=== PATIENT | male | born 1925 | race Caucasian/White ===

== ENCOUNTER 2016-07-02 13:20 | Inpatient (IN) | payer OTHER ==
[~2016-07-02] VITALS: Ht 172.7 cm; Wt 109.3 kg
[~2016-07-02 13:20] MED LIST: ACET325T9 PO; ATOR20TA58 PO; BISA-42 RC; CLON0.5T3 PO; CRESTOR10 MG PO; DEXT237L PO; DILT240C32 PO; DILT240C66 PO; DOXY100C2 PO; FAMO20TA5 PO; FLEC50TA PO; FURO40TA4 PO; FURO80TA3 PO; GLYB3TAB3 PO; HYDR-971 PO; INSU100C4 SQ; INSU100I13 SQ; INSU100I27 SQ; INSU100V8 SQ; MAG355OR30 PO; MAGN400O4 PO; METF-620 PO; MULT-245 PO; OXYC-323 PO; POT25TAB PO; PROM12.56 PO; RANI150T2 PO; SITA100T PO; UBID1CAP23 PO; VENTOLIN HFA18 GM INH; WARF2TAB7 PO; WARF5TAB7 PO
[2016-07-02] MEDS ORDERED: IV NORMAL SALINE 250ML 250 ML IV ONE (14:00)
[2016-07-02 14:23] LABS: BASO # 0.1 x10^3/uL (0.0-0.2); BASO % 1 % (0-3); EOS % 3 % (0-3); HEMATOCRIT 35.2 % (39.0-53.0); HEMOGLOBIN 11.7 g/dL (13.0-17.5); LYMPH # 1.1 x10^3/uL (1.0-4.8); LYMPH % 15 % (24-48); MEAN CORPUSCULAR HEMOGLOBIN 28 pg (25-35); MEAN CORPUSCULAR HGB CONC 33 g/dL (31-37); MEAN CORPUSCULAR VOLUME 85 fL (79-100); MONO % 13 % (0-9); NEUT % 69 % (31-73); PLATELET COUNT 186 x10^3/uL (140-400); RED BLOOD COUNT 4.16 x10^6/uL (4.30-5.70); WHITE BLOOD COUNT 7.1 x10^3/uL (4.0-11.0)
[2016-07-02 14:28] LABS: CALCIUM 8.8 mg/dL (8.5-10.1); CREATININE 1.8 mg/dL (0.7-1.3); GFR 35.7; POTASSIUM 3.3 mmol/L (3.5-5.1)
--- NOTE | 2016-07-02 14:47 | RAD ---
Portable chest, 07/02/2016: History: Shortness of breath, cough Comparison is made to a study from 12/15/2015. There is a moderate size retrocardiac mass due to the patient's known hiatal hernia. The heart is at the upper limits of normal in size. There is calcific plaquing and tortuosity of the thoracic aorta. The pulmonary vascularity is normal. A density projected over the cardiac apex is probably due to a prominent epicardial fat pad. No pulmonary infiltrate is seen. There is no evidence of pleural fluid. IMPRESSION: 1. Chronic findings as described above. 2. No acute cardiopulmonary abnormality is detected.
--- NOTE | 2016-07-02 14:59 | EKG ---
[facility] [address] [place] [address] Test Date: 2016-07-02 Test Time: 13:59:39 Pat Name: LAVONNE RODRIGUEZ Department: Room: Gender: M Attendance Secretary: : [id number] Requested By: ULISES HARPER Order Number: [id number] Reading MD: Drake Bonilla Measurements Intervals [place] Rate: 66 P: 54 OK: 176 QRS: -24 QRSD: 92 T: 7 QT: 416 QTc: 438 Interpretive Statements SINUS RHYTHM RBBB NON-SPECIFIC ST/T CHANGES Electronically Signed On 07-08-2016 13:31:12 CDT by Drake Bonilla
[2016-07-02] MEDS ORDERED: FUROSEMIDE 40 MG/4 ML VIAL. IVP ONE (15:00)
[2016-07-02] MEDS ORDERED: ONDANSETRON PF 4 MG/2 ML VIAL. IV PRN ×2 (15:15→16:26)
[2016-07-02] MEDS: IV NORMAL SALINE 1000ML BAG 1,000 ML IV SCH (15:22)
--- NOTE | 2016-07-02 16:26 | PDOC1 ---
History and Physical Date of Admission Date of Admission DATE: 07/02/16 TIME: 16:12 Identification/Chief Complaint Chief Complaint diarrhea x 4 days Problems: Source Source: Caregiver, Chart review, Patient History of Present Illness History of Present Illness 89 y.o male, resident of [facility] for some 4 yrs now, 4 day hx loose stools, non bloody, no fevers, about 3-4 times a day, Siome abd cramps. K 3.3 at ER, hx of CHF, afib on AC, sees outside cards. Chronic lymphedema, used to go to wound care, known to our wound care and GS for some debridement before? In any case admitted for diarrhea in an elderly with extensive past medcial hx, WBC normal, no stools yet, VS ok, K 3,.3 - will get replacement At ER NO recent travel, no sick contacts - or at least, none he is aware of at [facility] Past Medical History Cardiovascular: AFIB, CHF, Hyperlipidemia Pulmonary: COPD GI: GERD Heme/Onc: Other Hepatobiliary: No pertinent hx Psych: No pertinent hx Musculoskeletal: Swelling Rheumatologic: No pertinent hx Infectious disease: No pertinent hx Renal/: Chronic renal insuff Endocrine: Diabetes Past Surgical History Past Surgical History: No pertinent history Family History Family History: Family History Unknown Social History Smoke: No ALCOHOL: none Drugs: None Current Medications Current Medications Current Medications Sodium Chloride 250 ml @ 250 mls/hr 1X ONCE IV Last administered on 14:25; Start 07/02/16 at 14:00; Stop 07/02/16 at 14:59; Status DC Furosemide (Lasix) 40 mg 1X ONCE IVP Last administered on 07/02/16 15:23; Start 07/02/16 at 15:00; Stop 07/02/16 at 15:01; Status DC Ondansetron HCl (Zofran) 4 mg PRN Q8HRS PRN IV NAUSEA/VOMITING; Start 07/02/16 at 15:15; Stop 07/03/16 at 15:14 Sodium Chloride 1,000 ml @ 100 mls/hr Q10H IV Last administered on 07/02/16 15:22; Start 07/02/16 at 15:03; Stop 07/03/16 at 15:02 Active Scripts Active Doxycycline Hyclate 100 Mg Capsule 1 Cap PO BID Ventolin Hfa Inhaler (Albuterol Sulfate) 18 Gm Hfa.aer.ad 2 Puff INH Q4HRS PRN Levemir Flextouch (Insulin Detemir) 300 Units/3 Ml Insuln.pen 20 Units SQ QHS Reported Crestor (Rosuvastatin Calcium) 10 Mg Tablet 10 Mg PO HS Januvia (Sitagliptin Phosphate) 100 Mg Tablet 100 Mg PO DAILY Cartia Xt (Diltiazem Hcl) 240 Mg Cap.er.24h 240 Mg PO Furosemide 40 Mg Tablet 1 Tab PO DAILY Gave this am Take again tomorrow morning Rulox Suspension (Mag Hydrox/Al Hydrox/Simeth) 355 Ml Oral.susp 355 Ml PO DAILY PRN Not given on this admission take as needed for heartburn Milk Of Magnesia (Magnesium Hydroxide) 400 Mg/5 Ml Oral.susp 400 Mg PO DAILY PRN Not given on this admission take as needed for constipation Dulcolax (Bisacodyl) 5 Mg Tablet.dr 10 Mg RC PRN DAILY PRN Not given on this admission Take as needed for constipation Clonazepam 0.5 Mg Tablet 0.5 Mg PO HS PRN Not given on this admission Take as needed for anxiety Warfarin Sodium 2 Mg Tablet 6 Mg PO DAILY Gave yesterday at 5pm Take again this evening Potassium Cl 25 Meq Tab Eff (Pot Chloride/Pot Bicarb/Cit Ac) 25 Meq Tablet.eff 20 Meq PO DAILY Gave this am Take again tomorrow morning Multi Vitamin Daily (Multivitamin) 1 Each Tablet 1 Each PO DAILY Gave this am Take again tomorrow morning Allergies Allergies: Coded Allergies: No Known Drug Allergies (Unverified , 12/05/14) ROS General: No: Chills, Night Sweats, Fatigue, Malaise, Appetite, Other PSYCHOLOGICAL ROS: No: Anxiety, Behavioral Disorder, Concentration difficultie , Decreased libido, Depression, Disorientation, Hallucinations, Hostility, Irritablity, Memory difficulties, Mood Swings, Obsessive thoughts, Physical abuse, Sexual abuse, Sleep disturbances, Suicidal ideation, Other Eyes: No Blurry vision, No Decreased vision, No Double vision, No Dry eyes, No Excessive tearing, No Eye Pain, No Itchy Eyes, No Loss of vision, No Photophobia , No Scotomata, No Uses contacts, No Uses glasses, No Other HEENT: No: Heacaches, Visual Changes, Hearing change, Nasal congestion, Nasal discharge, Oral lesions, Sinus pain, Sore Throat, Epistaxis, Sneezing, Snoring, Tinnitus, Vertigo, Vocal changes, Other ALLERGY AND IMMUNOLOGY: No: Hives, Insect Bite Sensitivity, Itchy/Watery Eyes, Nasal Congestion, Post Nasal Drip, Seasonal Allergies, Other Hematological and Lymphatic: No: Bleeding Problems, Blood Clots, Blood Transfusions, Brusing, Night Sweats, Pallor, Swollen Lymph Nodes, Other ENDOCRINE: No: Breast Changes, Galactorrhea, Hair Pattern Changes, Hot Flashes , Malaise/lethargy, Mood Swings, Palpitations, Polydipsia/polyuria, Skin Changes , Temperature Intolerance, Unexpected Weight Changes, Other Breast: No New/Changing Breast Lumps, No Nipple changes, No Nipple discharge, No Other Respiratory: No: Cough, Hemoptysis, Orthopnea, Pleuritic Pain, Shortness of breath, SOB with excertion, Sputum Changes, Stridor, Tachypnea, Wheezing, Other Cardiovascular: No Chest Pain, No Palpitations, No Orthopnea, No Paroxysmal Noc. Dyspnea, No Edema, No Lt Headedness, No Other Gastrointestinal: Yes Nausea, Yes Abdominal Pain, Yes Diarrhea Genitourinary: No Dysuria, No Frequency, No Incontinence, No Hematuria, No Retention, No Discharge, No Urgency, No Pain, No Flank Pain, No Other, No , No , No , No , No , No , No Musculoskeletal: No Gait Disturbance, No Joint Pain, No Joint Stiffness, No Joint Swelling, No Muscle Pain, No Muscular Weakness, No Pain In:, No Swelling In:, No Other Neurological: No Behavorial Changes, No Bowel/Bladder ControlChng, No Confusion , No Dizziness, No Gait Disturbance, No Headaches, No Impaired Coord/balance, No Memory Loss, No Numbness/Tingling, No Seizures, No Speech Problems, No Tremors, No Visual Changes, No Weakness, No Other Skin: No Dry Skin, No Eczema, No Hair Changes, No Lumps, No Mole Changes, No Mottling, No Nail Changes, No Pruritus, No Rash, No Skin Lesion Changes, No Other, No Acne Physical Exam General: Alert, Oriented X3, Cooperative, No acute distress HEENT: Atraumatic, PERRLA, EOMI Lungs: Clear to auscultation, Normal air movement Heart: S1S2, RRR, no thrills, no rubs, no gallops Cardiovascular: S1, S2 Breasts: Normal, Abnormal mass palpable Abdomen: Normal bowel sounds, Soft, No tenderness, No hepatosplenomegaly, No masses Male Genitals Exam: normal genitalia, normal prostate Rectal Exam: not examined PELVIC: Nml ext genitalia Extremities: Other (chroncimlynmphedema, old hyperpigmenattion, some weeping lesions, none erythematous) Skin: Other (as above) Neuro: Normal gait, Normal speech, Strength at 5/5 X4 ext, Normal tone, Sensation intact, Cranial nerves 3-12 NL, Reflexes 2+ Psych/Mental Status: Mental status NL, Mood NL Vitals Vitals Vital Signs Date Time Temp Pulse Resp B/P (MAP) Pulse Ox O2 Delivery O2 Flow Rate FiO2 07/02/16 13:25 98.7 71 17 122/60 (80) 90 Room Air 98.7 Labs Labs Laboratory Tests Test 07/02/16 14:05 White Blood Count 7.1 x10^3/uL (4.0-11.0) Red Blood Count 4.16 x10^6/uL (4.30-5.70) Hemoglobin 11.7 g/dL (13.0-17.5) Hematocrit 35.2 % (39.0-53.0) Mean Corpuscular Volume 85 fL (79-100) Mean Corpuscular Hemoglobin 28 pg (25-35) Mean Corpuscular Hemoglobin Concent 33 g/dL (31-37) Red Cell Distribution Width 16.0 % (11.5-14.5) Platelet Count 186 x10^3/uL (140-400) Neutrophils (%) (Auto) 69 % (31-73) Lymphocytes (%) (Auto) 15 % (24-48) Monocytes (%) (Auto) 13 % (0-9) Eosinophils (%) (Auto) 3 % (0-3) Basophils (%) (Auto) 1 % (0-3) Neutrophils # (Auto) 4.8 x10^3uL (1.8-7.7) Lymphocytes # (Auto) 1.1 x10^3/uL (1.0-4.8) Monocytes # (Auto) 0.9 x10^3/uL (0.0-1.1) Eosinophils # (Auto) 0.2 x10^3/uL (0.0-0.7) Basophils # (Auto) 0.1 x10^3/uL (0.0-0.2) Sodium Level 143 mmol/L (136-145) Potassium Level 3.3 mmol/L (3.5-5.1) Chloride Level 103 mmol/L (98-107) Carbon Dioxide Level 34 mmol/L (21-32) Anion Gap 6 (6-14) Blood Urea Nitrogen 28 mg/dL (8-26) Creatinine 1.8 mg/dL (0.7-1.3) Estimated GFR (Cockcroft-Gault) 35.7 Glucose Level 165 mg/dL (70-99) Calcium Level 8.8 mg/dL (8.5-10.1) Troponin I Quantitative < 0.017 ng/mL (0.000-0.055) UU-Fpv-Y-Type Natriuretic Peptide 109 pg/mL (0-449) Laboratory Tests Test 07/02/16 14:05 White Blood Count 7.1 x10^3/uL (4.0-11.0) Red Blood Count 4.16 x10^6/uL (4.30-5.70) Hemoglobin 11.7 g/dL (13.0-17.5) Hematocrit 35.2 % (39.0-53.0) Mean Corpuscular Volume 85 fL (79-100) Mean Corpuscular Hemoglobin 28 pg (25-35) Mean Corpuscular Hemoglobin Concent 33 g/dL (31-37) Red Cell Distribution Width 16.0 % (11.5-14.5) Platelet Count 186 x10^3/uL (140-400) Neutrophils (%) (Auto) 69 % (31-73) Lymphocytes (%) (Auto) 15 % (24-48) Monocytes (%) (Auto) 13 % (0-9) Eosinophils (%) (Auto) 3 % (0-3) Basophils (%) (Auto) 1 % (0-3) Neutrophils # (Auto) 4.8 x10^3uL (1.8-7.7) Lymphocytes # (Auto) 1.1 x10^3/uL (1.0-4.8) Monocytes # (Auto) 0.9 x10^3/uL (0.0-1.1) Eosinophils # (Auto) 0.2 x10^3/uL (0.0-0.7) Basophils # (Auto) 0.1 x10^3/uL (0.0-0.2) Sodium Level 143 mmol/L (136-145) Potassium Level 3.3 mmol/L (3.5-5.1) Chloride Level 103 mmol/L (98-107) Carbon Dioxide Level 34 mmol/L (21-32) Anion Gap 6 (6-14) Blood Urea Nitrogen 28 mg/dL (8-26) Creatinine 1.8 mg/dL (0.7-1.3) Estimated GFR (Cockcroft-Gault) 35.7 Glucose Level 165 mg/dL (70-99) Calcium Level 8.8 mg/dL (8.5-10.1) Troponin I Quantitative < 0.017 ng/mL (0.000-0.055) JB-Pnb-K-Type Natriuretic Peptide 109 pg/mL (0-449) VTE Prophylaxis Ordered VTE Prophylaxis Devices: Yes VTE Pharmacological Prophylaxi: Yes Assessment/Plan Assessment/Plan 1. AGE 2. Chronic lymphedema, 3. Acute bilateral leg pain 4. Chronic wounds legs 5. Long toe nails 6, Hypokalemia from GI loss 7. CHF, atrial fib on AC - all chronic stable PLAn: Admit Send for stool studies Replace K Wound care Podiatry consult OT for lymphedema PT/OT Resume home meds COnt hung BELTRAN MD and family LAUREN LLANES MD July 02, 2016 16:26
[2016-07-02] MEDS ORDERED: BISACODYL 5 MG TABLET.DR. PO PRN (16:30)
[2016-07-02] MEDS ORDERED: DEXTROSE 50% 25 GM / 50ML DISP.SYRIN. IV PRN (16:30)
[2016-07-02] MEDS ORDERED: MAGNESIUM HYDROXIDE 2,400 MG/30 ML ORAL.SUSP. PO PRN (16:30)
[2016-07-02 16:59] LABS: INR 2.8 (0.8-1.1)
--- NOTE | 2016-07-02 17:06 | PHYS DOC ---
Past Medical History Past Medical History: A-Fib, Anxiety, Arthritis, Constipation, COPD, Coagulopathy, Diabetes-Type II, GERD, High Cholesterol, Hypertension, Other Additional Past Medical Histor: Obstructive Sleep Apnea Past Surgical History: Appendectomy, Tonsillectomy Additional Past Surgical Histo: Hernia Alcohol Use: None Drug Use: None Adult General Chief Complaint Chief Complaint: MULTIPLE COMPLAINTS HPI HPI 89-year-old male who's had significant diarrhea for the last 2 days and increasing weakness as well as noted bilateral lower extremity edema with some noted venous stasis. Patient states he has had multiple loose stools today denies any blood. He denies taking any antibiotic currently. Patient is on Coumadin therapy. States he has history of CHF, CKD, and lympadenopathy. He reports he has significant pain to his lower extremities. Patient does take diuretic therapy but states it is not helped with his leg swelling. He denies any significant shortness of breath today. Upon arrival, the patient was saturating in the 90-91% range on room air and was placed on supplemental oxygen. He does not appear to be in any acute distress. He is afebrile and nontoxic in appearance Review of Systems Review of Systems Constitutional: Denies fever or chills [] Eyes: Denies change in visual acuity, redness, or eye pain [] HENT: Denies nasal congestion or sore throat [] Respiratory: Denies cough or shortness of breath [] Cardiovascular: No additional information not addressed in HPI [] GI: Denies abdominal pain, nausea, vomiting, bloody stools or diarrhea [] : Denies dysuria or hematuria [] Musculoskeletal: Denies back pain or joint pain [] Integument: Denies rash or skin lesions [] Neurologic: Denies headache, focal weakness or sensory changes [] Endocrine: Denies polyuria or polydipsia [] Current Medications Current Medications Current Medications Medications (Trade) Dose Ordered Sig/Kevyn Start Time Stop Time Status Last Admin Dose Admin Bisacodyl (Dulcolax Tab) 10 mg PRN DAILY PRN 07/02/16 16:30 UNV Clonazepam (KlonoPIN) 0.5 mg PRN QHS PRN 07/02/16 16:30 Dextrose (Dextrose 50%-Water Syringe) 12.5 gm PRN Q15MIN PRN 07/02/16 16:30 Diltiazem HCl (Cardizem 24hr Cd) 240 mg DAILY 07/03/16 09:00 UNV Furosemide (Lasix) 40 mg DAILY 07/03/16 09:00 UNV Insulin Aspart (NovoLOG) 0-9 UNITS TIDWMEALS 07/02/16 17:00 UNV Insulin Detemir (Levemir) 20 units QHS 07/02/16 21:00 UNV Magnesium Hydroxide (Milk Of Magnesia) 400 mg PRN DAILY PRN 07/02/16 16:30 Non-Formulary Medication 100 mg DAILY 07/03/16 09:00 UNV Ondansetron HCl (Zofran) 4 mg PRN Q6HRS PRN 07/02/16 16:26 07/03/16 16:25 Sodium Chloride 1,000 ml @ 100 mls/hr Q10H 07/02/16 15:03 07/03/16 15:02 07/02/16 15:22 100 MLS/HR Warfarin Sodium (Coumadin) 6 mg DAILY 07/03/16 09:00 UNV Allergies Allergies Allergies Coded Allergies Type Severity Reaction Last Updated Verified No Known Drug Allergies 12/05/14 No Physical Exam Physical Exam Constitutional: Well developed, well nourished, no acute distress, non-toxic appearance. [] HENT: Normocephalic, atraumatic, bilateral external ears normal, oropharynx moist, no oral exudates, nose normal. [] Eyes: PERRLA, EOMI, conjunctiva normal, no discharge. [] Neck: Normal range of motion, no tenderness, supple, no stridor. [] Cardiovascular:Heart rate regular rhythm, no murmur [] Lungs & Thorax: Bilateral breath sounds clear to auscultation [] Abdomen: Bowel sounds normal, soft, no tenderness, no masses, no pulsatile masses. [] Skin: Warm, dry, no erythema, no rash. [] Back: No tenderness, no CVA tenderness. [] Extremities: No tenderness, no cyanosis, no clubbing, ROM intact, significant edema bilaterally with some noted erythema from venous statis and several areas of mild clear drainage noted. [] Neurologic: Alert and oriented X 3, normal motor function, normal sensory function, no focal deficits noted. [] Psychologic: Affect normal, judgement normal, mood normal. [] Current Patient Data Vital Signs Vital Signs Date Time Temp Pulse Resp B/P (MAP) Pulse Ox O2 Delivery O2 Flow Rate FiO2 07/02/16 13:25 98.7 71 17 122/60 (80) 90 Room Air 98.7 Lab Values Laboratory Tests Test 07/02/16 14:05 White Blood Count 7.1 x10^3/uL (4.0-11.0) Red Blood Count 4.16 x10^6/uL (4.30-5.70) L Hemoglobin 11.7 g/dL (13.0-17.5) L Hematocrit 35.2 % (39.0-53.0) L Mean Corpuscular Volume 85 fL (79-100) Mean Corpuscular Hemoglobin 28 pg (25-35) Mean Corpuscular Hemoglobin Concent 33 g/dL (31-37) Red Cell Distribution Width 16.0 % (11.5-14.5) H Platelet Count 186 x10^3/uL (140-400) Neutrophils (%) (Auto) 69 % (31-73) Lymphocytes (%) (Auto) 15 % (24-48) L Monocytes (%) (Auto) 13 % (0-9) H Eosinophils (%) (Auto) 3 % (0-3) Basophils (%) (Auto) 1 % (0-3) Neutrophils # (Auto) 4.8 x10^3uL (1.8-7.7) Lymphocytes # (Auto) 1.1 x10^3/uL (1.0-4.8) Monocytes # (Auto) 0.9 x10^3/uL (0.0-1.1) Eosinophils # (Auto) 0.2 x10^3/uL (0.0-0.7) Basophils # (Auto) 0.1 x10^3/uL (0.0-0.2) Prothrombin Time 28.0 SEC (11.7-14.0) H Prothrombin Time INR 2.8 (0.8-1.1) H Sodium Level 143 mmol/L (136-145) Potassium Level 3.3 mmol/L (3.5-5.1) L Chloride Level 103 mmol/L (98-107) Carbon Dioxide Level 34 mmol/L (21-32) H Anion Gap 6 (6-14) Blood Urea Nitrogen 28 mg/dL (8-26) H Creatinine 1.8 mg/dL (0.7-1.3) H Estimated GFR (Cockcroft-Gault) 35.7 Glucose Level 165 mg/dL (70-99) H Calcium Level 8.8 mg/dL (8.5-10.1) Troponin I Quantitative < 0.017 ng/mL (0.000-0.055) AS-Faw-K-Type Natriuretic Peptide 109 pg/mL (0-449) Laboratory Tests 07/02/16 14:05 Laboratory Tests 07/02/16 14:05 EKG EKG EKG as interpreted by me shows a sinus rhythm approximately a rate of 66 bpm. There is a leftward axis. There is no acute injury pattern seen. Radiology/Procedures Radiology/Procedures Portable chest, 07/02/2016: History: Shortness of breath, cough Comparison is made to a study from 12/15/2015. There is a moderate size retrocardiac mass due to the patient's known hiatal hernia. The heart is at the upper limits of normal in size. There is calcific plaquing and tortuosity of the thoracic aorta. The pulmonary vascularity is normal. A density projected over the cardiac apex is probably due to a prominent epicardial fat pad. No pulmonary infiltrate is seen. There is no evidence of pleural fluid. IMPRESSION: 1. Chronic findings as described above. 2. No acute cardiopulmonary abnormality is detected. Course & Med Decision Making Course & Med Decision Making Pertinent Labs and Imaging studies reviewed. (See chart for details) This 89 yo male with ongoing fluid loss from diarrhea with some mild symptoms of dehydration will be admitted for fluid rehydration therapy. His laboratory workup is fairly unremarkable. His EKG and chest film were also fairly unremarkable. Patient was given a dose of IV Lasix for his bilateral lower extremity swelling. His proBNP was not significantly elevated. His symptoms are likely more related to his known lymphedema. Dragon Disclaimer Dragon Disclaimer This electronic medical record was generated, in whole or in part, using a voice recognition dictation system. Departure Departure Impression: Primary Impression: Dehydration Additional Impression: Lower extremity edema Disposition: 09 ADMITTED INPATIENT Admitting Physician: Beverly Posey Condition: STABLE Referrals: STEPHANI SENA DO (PCP) Problem Qualifiers ULISES HARPER DO July 02, 2016 17:06
[2016-07-02] MEDS: INSULIN ASPART 300 UNITS/3 ML INSULN.PEN SQ SCH (18:00)
[2016-07-02] MEDS ORDERED: ALBUTEROL SULFATE 2.5 MG/3 ML NEBU. NEB PRN (19:00)
[2016-07-02] MEDS ORDERED: MAG HYDROX/ALUMINUM HYD/SIMETH 30 ML ORAL.SUSP PO PRN (19:00)
[2016-07-02] MEDS: WARFARIN 6 MG TABLET. PO SCH (19:41)
[2016-07-02 19:59] VITALS: BP 96/54
[2016-07-02] MEDS ORDERED: NON FORMULARY ITEM (Doxycycline Hyclate 1 CAP) PO SCH (21:00)
[2016-07-02] MEDS: ATORVASTATIN CALCIUM 40 MG TABLET. PO SCH (21:16)
[2016-07-02] MEDS ORDERED: POTASSIUM CHLORIDE 20 MEQ TABLET.ER. PO ONE (21:30)
[2016-07-02] MEDS: ACETAMINOPHEN 325 MG TABLET. PO PRN (21:52)
[2016-07-02] MEDS: INSULIN DETEMIR 300 UNITS/3 ML INSULN.PEN. SQ SCH (22:37)
[2016-07-02 23:59] VITALS: BP 96/60
[2016-07-03] MEDS: IV NORMAL SALINE 1000ML BAG 1,000 ML IV SCH ×2 (01:38→11:22)
[2016-07-03 03:59] VITALS: BP 99/57
[2016-07-03 05:18] LABS: BASO % 1 % (0-3); EOS % 3 % (0-3); HEMOGLOBIN 10.3 g/dL (13.0-17.5); LYMPH # 1.1 x10^3/uL (1.0-4.8); LYMPH % 17 % (24-48); MEAN CORPUSCULAR HEMOGLOBIN 28 pg (25-35); MEAN CORPUSCULAR HGB CONC 34 g/dL (31-37); MEAN CORPUSCULAR VOLUME 83 fL (79-100); MONO % 13 % (0-9); NEUT % 67 % (31-73); PLATELET COUNT 166 x10^3/uL (140-400); RED BLOOD COUNT 3.62 x10^6/uL (4.30-5.70); RED CELL DISTRIBUTION WIDTH 16.4 % (11.5-14.5); WHITE BLOOD COUNT 6.5 x10^3/uL (4.0-11.0)
[2016-07-03 05:30] LABS: CALCIUM 8.1 mg/dL (8.5-10.1); CREATININE 1.5 mg/dL (0.7-1.3); GFR 44.1; POTASSIUM 3.2 mmol/L (3.5-5.1)
[2016-07-03 07:00] VITALS: BP 105/68
[2016-07-03] MEDS ORDERED: POTASSIUM CHLORIDE 20 MEQ TABLET.ER. PO SCH (08:00)
[2016-07-03] MEDS: INSULIN ASPART 300 UNITS/3 ML INSULN.PEN SQ SCH ×3 (08:47→17:18)
[2016-07-03] MEDS: MULTIVITAMIN with MINERAL TABLET. PO SCH (08:48)
[2016-07-03] MEDS: FUROSEMIDE 40 MG TABLET. PO SCH (08:48)
[2016-07-03] MEDS: LINAGLIPTIN 5 MG TABLET PO SCH (08:49)
[2016-07-03] MEDS ORDERED: POTASSIUM CHLORIDE 20 MEQ TABLET.ER. PO ONE (11:00)
[2016-07-03 11:07] VITALS: BP 113/71
--- NOTE | 2016-07-03 11:42 | PDOC ---
PROGRESS NOTES Chief Complaint Chief Complaint Assessment/Plan 1. AGE, seems to be resolving 2. Chronic lymphedema, 3. Acute bilateral leg pain, chronic lymhedema 4. Chronic wounds legs - none seem infected 5. Long toe nails 6, Hypokalemia from GI loss 7. CHF, atrial fib on AC - all chronic stable History of Present Illness History of Present Illness NO stool sample bec has not had diarrhea since admission NOw is about to void NO issues per pt and RN Legs edema, chronic K 3.2 Crea better 1,.5 from 1,.8 Abd distended -chronic for him per pt PLAN: Replace K orally Stop IVF\K lucia AM Podiatry consulted for toe nail clipping ordered at ER level Await stool sample If cont to do better then home lucia Trial of immoidum - doubt c diff dw pt and RN Vitals Vitals Vital Signs Date Time Temp Pulse Resp B/P (MAP) Pulse Ox O2 Delivery O2 Flow Rate FiO2 07/03/16 11:07 97.8 72 20 113/71 (85) 95 Nasal Cannula 2.0 97.8 Physical Exam General: Alert, Oriented X3, Cooperative, No acute distress Lungs: Clear Abdomen: Normal bowel sounds, Soft, No tenderness, No hepatosplenomegaly, No masses Extremities: Other (chroncimlynmphedema, old hyperpigmenattion, some weeping lesions, none erythematous) Skin: Other (as above) Labs LABS Laboratory Tests Test 07/02/16 14:05 07/02/16 17:47 07/02/16 22:28 07/03/16 03:05 White Blood Count 7.1 x10^3/uL (4.0-11.0) 6.5 x10^3/uL (4.0-11.0) Red Blood Count 4.16 x10^6/uL (4.30-5.70) 3.62 x10^6/uL (4.30-5.70) Hemoglobin 11.7 g/dL (13.0-17.5) 10.3 g/dL (13.0-17.5) Hematocrit 35.2 % (39.0-53.0) 30.0 % (39.0-53.0) Mean Corpuscular Volume 85 fL (79-100) 83 fL (79-100) Mean Corpuscular Hemoglobin 28 pg (25-35) 28 pg (25-35) Mean Corpuscular Hemoglobin Concent 33 g/dL (31-37) 34 g/dL (31-37) Red Cell Distribution Width 16.0 % (11.5-14.5) 16.4 % (11.5-14.5) Platelet Count 186 x10^3/uL (140-400) 166 x10^3/uL (140-400) Neutrophils (%) (Auto) 69 % (31-73) 67 % (31-73) Lymphocytes (%) (Auto) 15 % (24-48) 17 % (24-48) Monocytes (%) (Auto) 13 % (0-9) 13 % (0-9) Eosinophils (%) (Auto) 3 % (0-3) 3 % (0-3) Basophils (%) (Auto) 1 % (0-3) 1 % (0-3) Neutrophils # (Auto) 4.8 x10^3uL (1.8-7.7) 4.3 x10^3uL (1.8-7.7) Lymphocytes # (Auto) 1.1 x10^3/uL (1.0-4.8) 1.1 x10^3/uL (1.0-4.8) Monocytes # (Auto) 0.9 x10^3/uL (0.0-1.1) 0.9 x10^3/uL (0.0-1.1) Eosinophils # (Auto) 0.2 x10^3/uL (0.0-0.7) 0.2 x10^3/uL (0.0-0.7) Basophils # (Auto) 0.1 x10^3/uL (0.0-0.2) 0.0 x10^3/uL (0.0-0.2) Prothrombin Time 28.0 SEC (11.7-14.0) Prothromb Time International Ratio 2.8 (0.8-1.1) Sodium Level 143 mmol/L (136-145) 144 mmol/L (136-145) Potassium Level 3.3 mmol/L (3.5-5.1) 3.2 mmol/L (3.5-5.1) Chloride Level 103 mmol/L (98-107) 106 mmol/L (98-107) Carbon Dioxide Level 34 mmol/L (21-32) 31 mmol/L (21-32) Anion Gap 6 (6-14) 7 (6-14) Blood Urea Nitrogen 28 mg/dL (8-26) 24 mg/dL (8-26) Creatinine 1.8 mg/dL (0.7-1.3) 1.5 mg/dL (0.7-1.3) Estimated GFR (Cockcroft-Gault) 35.7 44.1 Glucose Level 165 mg/dL (70-99) 62 mg/dL (70-99) Calcium Level 8.8 mg/dL (8.5-10.1) 8.1 mg/dL (8.5-10.1) Troponin I Quantitative < 0.017 ng/mL (0.000-0.055) SJ-Dak-Z-Type Natriuretic Peptide 109 pg/mL (0-449) Glucose (Fingerstick) 62 mg/dL (70-99) 175 mg/dL (70-99) Test 07/03/16 07:54 Glucose (Fingerstick) 79 mg/dL (70-99) Review of Systems Review of Systems denies cp. soa, abd pain Assessment and Plan Assessmemt and Plan Problems Medical Problems: (1) Dehydration Status: Acute (2) Lower extremity edema Status: Acute Problems: Comment Review of Relevant I have reviewed the following items faby (where applicable) has been applied. Labs Laboratory Tests Test 07/02/16 14:05 07/02/16 17:47 07/02/16 22:28 07/03/16 03:05 White Blood Count 7.1 x10^3/uL (4.0-11.0) 6.5 x10^3/uL (4.0-11.0) Red Blood Count 4.16 x10^6/uL (4.30-5.70) 3.62 x10^6/uL (4.30-5.70) Hemoglobin 11.7 g/dL (13.0-17.5) 10.3 g/dL (13.0-17.5) Hematocrit 35.2 % (39.0-53.0) 30.0 % (39.0-53.0) Mean Corpuscular Volume 85 fL (79-100) 83 fL (79-100) Mean Corpuscular Hemoglobin 28 pg (25-35) 28 pg (25-35) Mean Corpuscular Hemoglobin Concent 33 g/dL (31-37) 34 g/dL (31-37) Red Cell Distribution Width 16.0 % (11.5-14.5) 16.4 % (11.5-14.5) Platelet Count 186 x10^3/uL (140-400) 166 x10^3/uL (140-400) Neutrophils (%) (Auto) 69 % (31-73) 67 % (31-73) Lymphocytes (%) (Auto) 15 % (24-48) 17 % (24-48) Monocytes (%) (Auto) 13 % (0-9) 13 % (0-9) Eosinophils (%) (Auto) 3 % (0-3) 3 % (0-3) Basophils (%) (Auto) 1 % (0-3) 1 % (0-3) Neutrophils # (Auto) 4.8 x10^3uL (1.8-7.7) 4.3 x10^3uL (1.8-7.7) Lymphocytes # (Auto) 1.1 x10^3/uL (1.0-4.8) 1.1 x10^3/uL (1.0-4.8) Monocytes # (Auto) 0.9 x10^3/uL (0.0-1.1) 0.9 x10^3/uL (0.0-1.1) Eosinophils # (Auto) 0.2 x10^3/uL (0.0-0.7) 0.2 x10^3/uL (0.0-0.7) Basophils # (Auto) 0.1 x10^3/uL (0.0-0.2) 0.0 x10^3/uL (0.0-0.2) Prothrombin Time 28.0 SEC (11.7-14.0) Prothromb Time International Ratio 2.8 (0.8-1.1) Sodium Level 143 mmol/L (136-145) 144 mmol/L (136-145) Potassium Level 3.3 mmol/L (3.5-5.1) 3.2 mmol/L (3.5-5.1) Chloride Level 103 mmol/L (98-107) 106 mmol/L (98-107) Carbon Dioxide Level 34 mmol/L (21-32) 31 mmol/L (21-32) Anion Gap 6 (6-14) 7 (6-14) Blood Urea Nitrogen 28 mg/dL (8-26) 24 mg/dL (8-26) Creatinine 1.8 mg/dL (0.7-1.3) 1.5 mg/dL (0.7-1.3) Estimated GFR (Cockcroft-Gault) 35.7 44.1 Glucose Level 165 mg/dL (70-99) 62 mg/dL (70-99) Calcium Level 8.8 mg/dL (8.5-10.1) 8.1 mg/dL (8.5-10.1) Troponin I Quantitative < 0.017 ng/mL (0.000-0.055) OT-Rcn-O-Type Natriuretic Peptide 109 pg/mL (0-449) Glucose (Fingerstick) 62 mg/dL (70-99) 175 mg/dL (70-99) Test 07/03/16 07:54 Glucose (Fingerstick) 79 mg/dL (70-99) Laboratory Tests Test 07/02/16 14:05 07/02/16 17:47 07/02/16 22:28 07/03/16 03:05 White Blood Count 7.1 x10^3/uL (4.0-11.0) 6.5 x10^3/uL (4.0-11.0) Red Blood Count 4.16 x10^6/uL (4.30-5.70) 3.62 x10^6/uL (4.30-5.70) Hemoglobin 11.7 g/dL (13.0-17.5) 10.3 g/dL (13.0-17.5) Hematocrit 35.2 % (39.0-53.0) 30.0 % (39.0-53.0) Mean Corpuscular Volume 85 fL (79-100) 83 fL (79-100) Mean Corpuscular Hemoglobin 28 pg (25-35) 28 pg (25-35) Mean Corpuscular Hemoglobin Concent 33 g/dL (31-37) 34 g/dL (31-37) Red Cell Distribution Width 16.0 % (11.5-14.5) 16.4 % (11.5-14.5) Platelet Count 186 x10^3/uL (140-400) 166 x10^3/uL (140-400) Neutrophils (%) (Auto) 69 % (31-73) 67 % (31-73) Lymphocytes (%) (Auto) 15 % (24-48) 17 % (24-48) Monocytes (%) (Auto) 13 % (0-9) 13 % (0-9) Eosinophils (%) (Auto) 3 % (0-3) 3 % (0-3) Basophils (%) (Auto) 1 % (0-3) 1 % (0-3) Neutrophils # (Auto) 4.8 x10^3uL (1.8-7.7) 4.3 x10^3uL (1.8-7.7) Lymphocytes # (Auto) 1.1 x10^3/uL (1.0-4.8) 1.1 x10^3/uL (1.0-4.8) Monocytes # (Auto) 0.9 x10^3/uL (0.0-1.1) 0.9 x10^3/uL (0.0-1.1) Eosinophils # (Auto) 0.2 x10^3/uL (0.0-0.7) 0.2 x10^3/uL (0.0-0.7) Basophils # (Auto) 0.1 x10^3/uL (0.0-0.2) 0.0 x10^3/uL (0.0-0.2) Prothrombin Time 28.0 SEC (11.7-14.0) Prothromb Time International Ratio 2.8 (0.8-1.1) Sodium Level 143 mmol/L (136-145) 144 mmol/L (136-145) Potassium Level 3.3 mmol/L (3.5-5.1) 3.2 mmol/L (3.5-5.1) Chloride Level 103 mmol/L (98-107) 106 mmol/L (98-107) Carbon Dioxide Level 34 mmol/L (21-32) 31 mmol/L (21-32) Anion Gap 6 (6-14) 7 (6-14) Blood Urea Nitrogen 28 mg/dL (8-26) 24 mg/dL (8-26) Creatinine 1.8 mg/dL (0.7-1.3) 1.5 mg/dL (0.7-1.3) Estimated GFR (Cockcroft-Gault) 35.7 44.1 Glucose Level 165 mg/dL (70-99) 62 mg/dL (70-99) Calcium Level 8.8 mg/dL (8.5-10.1) 8.1 mg/dL (8.5-10.1) Troponin I Quantitative < 0.017 ng/mL (0.000-0.055) NC-Nor-C-Type Natriuretic Peptide 109 pg/mL (0-449) Glucose (Fingerstick) 62 mg/dL (70-99) 175 mg/dL (70-99) Test 07/03/16 07:54 Glucose (Fingerstick) 79 mg/dL (70-99) Medications Current Medications Sodium Chloride 250 ml @ 250 mls/hr 1X ONCE IV Last administered on 14:25; Start 07/02/16 at 14:00; Stop 07/02/16 at 14:59; Status DC Furosemide (Lasix) 40 mg 1X ONCE IVP Last administered on 07/02/16 15:23; Start 07/02/16 at 15:00; Stop 07/02/16 at 15:01; Status DC Ondansetron HCl (Zofran) 4 mg PRN Q8HRS PRN IV NAUSEA/VOMITING; Start 07/02/16 at 15:15; Stop 07/02/16 at 16:29; Status DC Sodium Chloride 1,000 ml @ 100 mls/hr Q10H IV Last administered on 07/03/16 01:38; Start 07/02/16 at 15:03; Stop 07/03/16 at 11:24; Status DC Ondansetron HCl (Zofran) 4 mg PRN Q6HRS PRN IV NAUSEA/VOMITING; Start 07/02/16 at 16:26; Stop 07/03/16 at 16:25 Bisacodyl (Dulcolax Tab) 10 mg PRN DAILY PRN PO CONSTIPATION; Start 07/02/16 at 16:30 Clonazepam (KlonoPIN) 0.5 mg PRN QHS PRN PO ANXIETY; Start 07/02/16 at 16:30 Diltiazem HCl (Cardizem 24hr Cd) 240 mg DAILY PO Last administered on 08:48; Start 07/03/16 at 09:00 Furosemide (Lasix) 40 mg DAILY PO Last administered on 07/03/16 08:48; Start 07/03/16 at 09:00 Insulin Detemir (Levemir) 20 units QHS SQ Last administered on 07/02/16 22:37 ; Start 07/02/16 at 21:00 Magnesium Hydroxide (Milk Of Magnesia) 400 mg PRN DAILY PRN PO CONSTIPATION; Start 07/02/16 at 16:30 Warfarin Sodium (Coumadin) 6 mg DAILY16 PO Last administered on 07/02/16 19:41 ; Start 07/02/16 at 19:30 Albuterol Sulfate (Ventolin Neb Soln) 2.5 mg PRN Q4HRS PRN NEB SHORTNESS OF BREATH; Start 07/02/16 at 19:00 Non-Formulary Medication 1 cap BID PO ; Start 07/02/16 at 21:00; Status UNV Al Hydroxide/Mg Hydroxide (Mylanta Plus Xs) 30 ml PRN DAILY PRN PO HEARTBURN / GAS; Start 07/02/16 at 19:00 Multivitamins (Thera M Plus) 1 tab DAILY PO Last administered on 07/03/16 08: 48; Start 07/03/16 at 09:00 Potassium Chloride (Klor-Con) 20 meq DAILYWBKFT PO Last administered on 08:48; Start 07/03/16 at 08:00; Stop 07/03/16 at 10:55; Status DC Atorvastatin Calcium (Lipitor) 40 mg QHS PO Last administered on 07/02/16 21: 16; Start 07/02/16 at 21:00 Linagliptin (Tradjenta) 5 mg DAILY PO Last administered on 07/03/16 08:49; Start 07/03/16 at 09:00 Insulin Aspart (NovoLOG) 0-9 UNITS TIDWMEALS SQ ; Start 07/02/16 at 18:00 Dextrose (Dextrose 50%-Water Syringe) 12.5 gm PRN Q15MIN PRN IV SEE COMMENTS; Start 07/02/16 at 16:30 Warfarin Sodium (Coumadin Per Physician) 1 each PRN DAILY PRN MC SEE COMMENTS Last administered on 07/03/16 07:51; Start 07/02/16 at 19:00 Acetaminophen (Tylenol) 650 mg PRN Q6HRS PRN PO pain Last administered on 21:52; Start 07/02/16 at 21:30 Potassium Chloride (Klor-Con) 40 meq 1X ONCE PO Last administered on 21:52; Start 07/02/16 at 21:30; Stop 07/02/16 at 21:31; Status DC Potassium Chloride (Klor-Con) 40 meq DAILYWBKFT PO ; Start 07/04/16 at 08:00 Potassium Chloride (Klor-Con) 40 meq 1X ONCE PO ; Start 07/03/16 at 11:00; Stop 07/03/16 at 11:01; Status DC Active Scripts Active Doxycycline Hyclate 100 Mg Capsule 1 Cap PO BID Ventolin Hfa Inhaler (Albuterol Sulfate) 18 Gm Hfa.aer.ad 2 Puff INH Q4HRS PRN Levemir Flextouch (Insulin Detemir) 300 Units/3 Ml Insuln.pen 20 Units SQ QHS Reported Crestor (Rosuvastatin Calcium) 10 Mg Tablet 10 Mg PO HS Januvia (Sitagliptin Phosphate) 100 Mg Tablet 100 Mg PO DAILY Cartia Xt (Diltiazem Hcl) 240 Mg Cap.er.24h 240 Mg PO Furosemide 40 Mg Tablet 1 Tab PO DAILY Gave this am Take again tomorrow morning Rulox Suspension (Mag Hydrox/Al Hydrox/Simeth) 355 Ml Oral.susp 355 Ml PO DAILY PRN Not given on this admission take as needed for heartburn Milk Of Magnesia (Magnesium Hydroxide) 400 Mg/5 Ml Oral.susp 400 Mg PO DAILY PRN Not given on this admission take as needed for constipation Dulcolax (Bisacodyl) 5 Mg Tablet.dr 10 Mg RC PRN DAILY PRN Not given on this admission Take as needed for constipation Clonazepam 0.5 Mg Tablet 0.5 Mg PO HS PRN Not given on this admission Take as needed for anxiety Warfarin Sodium 2 Mg Tablet 6 Mg PO DAILY Gave yesterday at 5pm Take again this evening Potassium Cl 25 Meq Tab Eff (Pot Chloride/Pot Bicarb/Cit Ac) 25 Meq Tablet.eff 20 Meq PO DAILY Gave this am Take again tomorrow morning Multi Vitamin Daily (Multivitamin) 1 Each Tablet 1 Each PO DAILY Gave this am Take again tomorrow morning Vitals/I & O Vital Sign - Last 24 Hours 07/02/16 07/02/16 07/02/16 07/02/16 13:25 14:01 14:29 14:59 Temp 98.7 98.7 Pulse 71 70 59 63 Resp 17 20 15 B/P (MAP) 122/60 (80) 111/59 (76) 114/60 (78) 127/66 (86) Pulse Ox 90 94 96 93 O2 Delivery Room Air Nasal Cannula Nasal Cannula Nasal Cannula O2 Flow Rate 2.0 2.0 2.0 07/02/16 07/02/16 07/02/16 07/02/16 15:29 15:59 16:29 16:59 Pulse 67 62 65 69 Resp 16 20 19 18 B/P (MAP) 123/65 (84) 110/55 (73) 131/71 (91) 130/74 (92) Pulse Ox 95 95 94 94 O2 Delivery Nasal Cannula Nasal Cannula Nasal Cannula Nasal Cannula O2 Flow Rate 2.0 2.0 2.0 2.0 07/02/16 07/02/16 07/02/16 07/02/16 17:29 17:59 19:59 20:00 Temp 98.3 98.3 Pulse 69 69 79 Resp 19 20 20 B/P (MAP) 116/67 (83) 135/59 (84) 96/54 (68) Pulse Ox 95 95 94 O2 Delivery Nasal Cannula Nasal Cannula Nasal Cannula Nasal Cannula O2 Flow Rate 2.0 2.0 2.0 2.0 07/02/16 07/03/16 07/03/16 07/03/16 23:59 03:59 07:00 08:48 Temp 98.9 97.8 97.8 98.9 97.8 97.8 Pulse 73 65 74 74 Resp 22 20 20 B/P (MAP) 96/60 (72) 99/57 (71) 105/68 (80) 105/68 Pulse Ox 93 95 96 O2 Delivery Nasal Cannula Nasal Cannula Nasal Cannula O2 Flow Rate 2.0 2.0 2.0 07/03/16 11:07 Temp 97.8 97.8 Pulse 72 Resp 20 B/P (MAP) 113/71 (85) Pulse Ox 95 O2 Delivery Nasal Cannula O2 Flow Rate 2.0 Intake and Output 07/02/16 07/02/16 07/03/16 15:00 23:00 07:00 Intake Total 250 ml 120 ml Output Total 900 ml 200 ml Balance -650 ml -80 ml LAUREN LLANES MD July 03, 2016 11:42
[2016-07-03] MEDS ORDERED: LOPERAMIDE 2 MG CAPSULE PO PRN (11:45)
[2016-07-03 15:00] VITALS: BP 116/72
[2016-07-03] MEDS: WARFARIN 6 MG TABLET. PO SCH (16:23)
[2016-07-03 19:37] VITALS: BP 103/65
[2016-07-03] MEDS: clonazePAM 0.5 MG TABLET PO PRN (21:21)
[2016-07-03] MEDS: ATORVASTATIN CALCIUM 40 MG TABLET. PO SCH (21:21)
[2016-07-03] MEDS: INSULIN DETEMIR 300 UNITS/3 ML INSULN.PEN. SQ SCH (21:25)
[2016-07-03 23:16] VITALS: BP 106/65
[2016-07-04 05:52] LABS: INR 4.2 (0.8-1.1); PROTHROMBIN TIME PATIENT 38.3 SEC (11.7-14.0)
[2016-07-04 07:00] VITALS: BP 103/56
[2016-07-04] MEDS: INSULIN ASPART 300 UNITS/3 ML INSULN.PEN SQ SCH ×3 (08:32→17:06)
[2016-07-04] MEDS: LINAGLIPTIN 5 MG TABLET PO SCH (08:40)
[2016-07-04] MEDS: POTASSIUM CHLORIDE 20 MEQ TABLET.ER. PO SCH (08:40)
[2016-07-04] MEDS: MULTIVITAMIN with MINERAL TABLET. PO SCH (08:40)
[2016-07-04] MEDS: FUROSEMIDE 40 MG TABLET. PO SCH (08:40)
[2016-07-04] MEDS: metroNIDAZOLE 500 MG TABLET PO SCH ×3 (08:40→21:41)
--- NOTE | 2016-07-04 10:27 | PDOC ---
PROGRESS NOTES Chief Complaint Chief Complaint Assessment/Plan 1. First episode C diff diarrhea 2. Chronic lymphedema, 3. Acute bilateral leg pain, chronic lymhedema 4. Chronic wounds legs - none seem infected 5. Long toe nails 6, Hypokalemia from GI loss, replaced 7. 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 overnight NO fevers, no WBC, no abd pain so far HAs not moved today but did have 4 BM yesterday Still weak [place] resident NO emesis K corrected PLAN: AGree with flagly COntact isol Keep for now, too weak to dc today Elderly with lost of co morbids SO far keeping PO intake Can re check K/BMP lucia - replace prn If feels better lucia, dc back to [place] lucia Can ff up podiatry lucia Tuesday for toe nail clipping Vitals Vitals Vital Signs Date Time Temp Pulse Resp B/P (MAP) Pulse Ox O2 Delivery O2 Flow Rate FiO2 07/04/16 08:40 69 103/56 07/04/16 08:00 Room Air 07/04/16 07:00 98.0 22 91 98.0 07/03/16 20:00 2.0 Physical Exam General: Alert, Oriented X3, Cooperative, No acute distress Lungs: Clear Abdomen: Normal bowel sounds, Soft, No tenderness, No hepatosplenomegaly, No masses Extremities: Other (chroncimlynmphedema, old hyperpigmenattion, some weeping lesions, none erythematous) Skin: Other (as above) Labs LABS Laboratory Tests Test 07/03/16 10:45 07/03/16 11:20 07/03/16 16:50 07/03/16 21:13 Glucose (Fingerstick) 165 mg/dL (70-99) 85 mg/dL (70-99) 99 mg/dL (70-99) Clostridium difficile Toxin (PCR) Positive (Negative) Test 07/04/16 04:15 07/04/16 07:22 Prothrombin Time 38.3 SEC (11.7-14.0) Prothromb Time International Ratio 4.2 (0.8-1.1) Glucose (Fingerstick) 75 mg/dL (70-99) Review of Systems Review of Systems diarrhea, weak, no cp, soa Assessment and Plan Assessmemt and Plan Problems Medical Problems: (1) Dehydration Status: Acute (2) Lower extremity edema Status: Acute Problems: Comment Review of Relevant I have reviewed the following items faby (where applicable) has been applied. Labs Laboratory Tests Test 07/02/16 14:05 07/02/16 17:47 07/02/16 22:28 07/02/16 22:35 White Blood Count 7.1 x10^3/uL (4.0-11.0) Red Blood Count 4.16 x10^6/uL (4.30-5.70) Hemoglobin 11.7 g/dL (13.0-17.5) Hematocrit 35.2 % (39.0-53.0) Mean Corpuscular Volume 85 fL (79-100) Mean Corpuscular Hemoglobin 28 pg (25-35) Mean Corpuscular Hemoglobin Concent 33 g/dL (31-37) Red Cell Distribution Width 16.0 % (11.5-14.5) Platelet Count 186 x10^3/uL (140-400) Neutrophils (%) (Auto) 69 % (31-73) Lymphocytes (%) (Auto) 15 % (24-48) Monocytes (%) (Auto) 13 % (0-9) Eosinophils (%) (Auto) 3 % (0-3) Basophils (%) (Auto) 1 % (0-3) Neutrophils # (Auto) 4.8 x10^3uL (1.8-7.7) Lymphocytes # (Auto) 1.1 x10^3/uL (1.0-4.8) Monocytes # (Auto) 0.9 x10^3/uL (0.0-1.1) Eosinophils # (Auto) 0.2 x10^3/uL (0.0-0.7) Basophils # (Auto) 0.1 x10^3/uL (0.0-0.2) Prothrombin Time 28.0 SEC (11.7-14.0) Prothromb Time International Ratio 2.8 (0.8-1.1) Sodium Level 143 mmol/L (136-145) Potassium Level 3.3 mmol/L (3.5-5.1) Chloride Level 103 mmol/L (98-107) Carbon Dioxide Level 34 mmol/L (21-32) Anion Gap 6 (6-14) Blood Urea Nitrogen 28 mg/dL (8-26) Creatinine 1.8 mg/dL (0.7-1.3) Estimated GFR (Cockcroft-Gault) 35.7 Glucose Level 165 mg/dL (70-99) Calcium Level 8.8 mg/dL (8.5-10.1) Troponin I Quantitative < 0.017 ng/mL (0.000-0.055) XJ-Vyd-R-Type Natriuretic Peptide 109 pg/mL (0-449) Glucose (Fingerstick) 62 mg/dL (70-99) 175 mg/dL (70-99) Nasal Screen MRSA (PCR) Negative (Negative) Test 07/03/16 03:05 07/03/16 07:54 07/03/16 10:45 07/03/16 11:20 White Blood Count 6.5 x10^3/uL (4.0-11.0) Red Blood Count 3.62 x10^6/uL (4.30-5.70) Hemoglobin 10.3 g/dL (13.0-17.5) Hematocrit 30.0 % (39.0-53.0) Mean Corpuscular Volume 83 fL (79-100) Mean Corpuscular Hemoglobin 28 pg (25-35) Mean Corpuscular Hemoglobin Concent 34 g/dL (31-37) Red Cell Distribution Width 16.4 % (11.5-14.5) Platelet Count 166 x10^3/uL (140-400) Neutrophils (%) (Auto) 67 % (31-73) Lymphocytes (%) (Auto) 17 % (24-48) Monocytes (%) (Auto) 13 % (0-9) Eosinophils (%) (Auto) 3 % (0-3) Basophils (%) (Auto) 1 % (0-3) Neutrophils # (Auto) 4.3 x10^3uL (1.8-7.7) Lymphocytes # (Auto) 1.1 x10^3/uL (1.0-4.8) Monocytes # (Auto) 0.9 x10^3/uL (0.0-1.1) Eosinophils # (Auto) 0.2 x10^3/uL (0.0-0.7) Basophils # (Auto) 0.0 x10^3/uL (0.0-0.2) Sodium Level 144 mmol/L (136-145) Potassium Level 3.2 mmol/L (3.5-5.1) Chloride Level 106 mmol/L (98-107) Carbon Dioxide Level 31 mmol/L (21-32) Anion Gap 7 (6-14) Blood Urea Nitrogen 24 mg/dL (8-26) Creatinine 1.5 mg/dL (0.7-1.3) Estimated GFR (Cockcroft-Gault) 44.1 Glucose Level 62 mg/dL (70-99) Calcium Level 8.1 mg/dL (8.5-10.1) Glucose (Fingerstick) 79 mg/dL (70-99) 165 mg/dL (70-99) Clostridium difficile Toxin (PCR) Positive (Negative) Test 07/03/16 16:50 07/03/16 21:13 07/04/16 04:15 07/04/16 07:22 Glucose (Fingerstick) 85 mg/dL (70-99) 99 mg/dL (70-99) 75 mg/dL (70-99) Prothrombin Time 38.3 SEC (11.7-14.0) Prothromb Time International Ratio 4.2 (0.8-1.1) Laboratory Tests Test 07/03/16 10:45 07/03/16 11:20 07/03/16 16:50 07/03/16 21:13 Glucose (Fingerstick) 165 mg/dL (70-99) 85 mg/dL (70-99) 99 mg/dL (70-99) Clostridium difficile Toxin (PCR) Positive (Negative) Test 07/04/16 04:15 07/04/16 07:22 Prothrombin Time 38.3 SEC (11.7-14.0) Prothromb Time International Ratio 4.2 (0.8-1.1) Glucose (Fingerstick) 75 mg/dL (70-99) Medications Current Medications Sodium Chloride 250 ml @ 250 mls/hr 1X ONCE IV Last administered on 14:25; Start 07/02/16 at 14:00; Stop 07/02/16 at 14:59; Status DC Furosemide (Lasix) 40 mg 1X ONCE IVP Last administered on 07/02/16 15:23; Start 07/02/16 at 15:00; Stop 07/02/16 at 15:01; Status DC Ondansetron HCl (Zofran) 4 mg PRN Q8HRS PRN IV NAUSEA/VOMITING; Start 07/02/16 at 15:15; Stop 07/02/16 at 16:29; Status DC Sodium Chloride 1,000 ml @ 100 mls/hr Q10H IV Last administered on 07/03/16 01:38; Start 07/02/16 at 15:03; Stop 07/03/16 at 11:24; Status DC Ondansetron HCl (Zofran) 4 mg PRN Q6HRS PRN IV NAUSEA/VOMITING; Start 07/02/16 at 16:26; Stop 07/03/16 at 16:25; Status DC Bisacodyl (Dulcolax Tab) 10 mg PRN DAILY PRN PO CONSTIPATION; Start 07/02/16 at 16:30 Clonazepam (KlonoPIN) 0.5 mg PRN QHS PRN PO ANXIETY Last administered on 21:21; Start 07/02/16 at 16:30 Diltiazem HCl (Cardizem 24hr Cd) 240 mg DAILY PO Last administered on 08:40; Start 07/03/16 at 09:00 Furosemide (Lasix) 40 mg DAILY PO Last administered on 07/04/16 08:40; Start 07/03/16 at 09:00 Insulin Detemir (Levemir) 20 units QHS SQ Last administered on 07/03/16 21:25 ; Start 07/02/16 at 21:00 Magnesium Hydroxide (Milk Of Magnesia) 400 mg PRN DAILY PRN PO CONSTIPATION; Start 07/02/16 at 16:30 Warfarin Sodium (Coumadin) 6 mg DAILY16 PO Last administered on 07/03/16 16:23 ; Start 07/02/16 at 19:30; Status Future Hold Albuterol Sulfate (Ventolin Neb Soln) 2.5 mg PRN Q4HRS PRN NEB SHORTNESS OF BREATH; Start 07/02/16 at 19:00 Non-Formulary Medication 1 cap BID PO ; Start 07/02/16 at 21:00; Status UNV Al Hydroxide/Mg Hydroxide (Mylanta Plus Xs) 30 ml PRN DAILY PRN PO HEARTBURN / GAS; Start 07/02/16 at 19:00 Multivitamins (Thera M Plus) 1 tab DAILY PO Last administered on 07/04/16 08: 40; Start 07/03/16 at 09:00 Potassium Chloride (Klor-Con) 20 meq DAILYWBKFT PO Last administered on 08:48; Start 07/03/16 at 08:00; Stop 07/03/16 at 10:55; Status DC Atorvastatin Calcium (Lipitor) 40 mg QHS PO Last administered on 07/03/16 21: 21; Start 07/02/16 at 21:00 Linagliptin (Tradjenta) 5 mg DAILY PO Last administered on 07/04/16 08:40; Start 07/03/16 at 09:00 Insulin Aspart (NovoLOG) 0-9 UNITS TIDWMEALS SQ Last administered on 07/03/16 11:45; Start 07/02/16 at 18:00 Dextrose (Dextrose 50%-Water Syringe) 12.5 gm PRN Q15MIN PRN IV SEE COMMENTS; Start 07/02/16 at 16:30 Warfarin Sodium (Coumadin Per Physician) 1 each PRN DAILY PRN MC SEE COMMENTS Last administered on 07/03/16 07:51; Start 07/02/16 at 19:00 Acetaminophen (Tylenol) 650 mg PRN Q6HRS PRN PO pain Last administered on 21:52; Start 07/02/16 at 21:30 Potassium Chloride (Klor-Con) 40 meq 1X ONCE PO Last administered on 21:52; Start 07/02/16 at 21:30; Stop 07/02/16 at 21:31; Status DC Potassium Chloride (Klor-Con) 40 meq DAILYWBKFT PO Last administered on 08:40; Start 07/04/16 at 08:00 Potassium Chloride (Klor-Con) 40 meq 1X ONCE PO Last administered on 11:39; Start 07/03/16 at 11:00; Stop 07/03/16 at 11:01; Status DC Loperamide HCl (Imodium) 2 mg PRN Q15MIN PRN PO DIARRHEA; Start 07/03/16 at 11: 45 Metronidazole (Flagyl) 500 mg TID PO Last administered on 07/04/16t 08:40; Start 07/04/16 at 09:00 Active Scripts Active Doxycycline Hyclate 100 Mg Capsule 1 Cap PO BID Ventolin Hfa Inhaler (Albuterol Sulfate) 18 Gm Hfa.aer.ad 2 Puff INH Q4HRS PRN Levemir Flextouch (Insulin Detemir) 300 Units/3 Ml Insuln.pen 20 Units SQ QHS Reported Crestor (Rosuvastatin Calcium) 10 Mg Tablet 10 Mg PO HS Januvia (Sitagliptin Phosphate) 100 Mg Tablet 100 Mg PO DAILY Cartia Xt (Diltiazem Hcl) 240 Mg Cap.er.24h 240 Mg PO Furosemide 40 Mg Tablet 1 Tab PO DAILY Gave this am Take again tomorrow morning Rulox Suspension (Mag Hydrox/Al Hydrox/Simeth) 355 Ml Oral.susp 355 Ml PO DAILY PRN Not given on this admission take as needed for heartburn Milk Of Magnesia (Magnesium Hydroxide) 400 Mg/5 Ml Oral.susp 400 Mg PO DAILY PRN Not given on this admission take as needed for constipation Dulcolax (Bisacodyl) 5 Mg Tablet.dr 10 Mg RC PRN DAILY PRN Not given on this admission Take as needed for constipation Clonazepam 0.5 Mg Tablet 0.5 Mg PO HS PRN Not given on this admission Take as needed for anxiety Warfarin Sodium 2 Mg Tablet 6 Mg PO DAILY Gave yesterday at 5pm Take again this evening Potassium Cl 25 Meq Tab Eff (Pot Chloride/Pot Bicarb/Cit Ac) 25 Meq Tablet.eff 20 Meq PO DAILY Gave this am Take again tomorrow morning Multi Vitamin Daily (Multivitamin) 1 Each Tablet 1 Each PO DAILY Gave this am Take again tomorrow morning Vitals/I & O Vital Sign - Last 24 Hours 07/03/16 07/03/16 07/03/16 07/03/16 11:07 15:00 19:37 20:00 Temp 97.8 97.8 97.8 97.8 97.8 97.8 Pulse 72 73 75 Resp 20 20 18 B/P (MAP) 113/71 (85) 116/72 (87) 103/65 (78) Pulse Ox 95 94 93 O2 Delivery Nasal Cannula Room Air Room Air Nasal Cannula O2 Flow Rate 2.0 2.0 07/03/16 07/04/16 07/04/16 07/04/16 23:16 07:00 08:00 08:40 Temp 98.0 98.0 98.0 98.0 Pulse 72 69 69 Resp 18 22 B/P (MAP) 106/65 (79) 103/56 (72) 103/56 Pulse Ox 93 91 O2 Delivery Room Air Room Air Room Air Intake and Output 07/03/16 07/03/16 07/04/16 15:00 23:00 07:00 Intake Total 500 ml 1600 ml 240 ml Output Total 300 ml 600 ml Balance 500 ml 1300 ml -360 ml LAUREN LLANES MD July 04, 2016 10:27
--- NOTE | 2016-07-04 10:45 | ACF ---
Admission Forms Criteria DEHYDRATION Clinical Indications for Admission to Inpatient Care (Place 'X' for any and all applicable criteria): Admission is indicated for ANY ONE of the following (1)(2)(3)(4)(5): [X]I. Inpatient admission required rather than observation care (see Dehydration: Observation Care guideline as appropriate) because of ANY ONE of the following: [ ]a) Vomiting that is severe or persistent [ ]b) Severe electrolyte abnormalities requiring inpatient care [ ]c) Hemodynamic instability [ ]d) IV fluid to replace significant ongoing losses (greater than 3 L/m2 per day (10) (11) [ ]e) Parenteral nutrition regimen that must be implemented on inpatient basis [X]f) Other condition,treatment or monitoring requiring inpatient admission [ ]II. Serious cause for dehydration requiring acute hospitalization (eg, bowel obstruction, increased intracranial pressure, infectious cause) Extended stay beyond goal length of stay may be needed for(1)(3 )(4)(17): [ ]a) Chronic severe dehydration [ ]b) Persistent vital sign changes, severe electrolyte imbalance, or diagnosed cause of dehydration that requires continued hospitalization (eg, bowel obstruction, increased intracranial pressure) [ ]c) Older patients (65 years or older) [ ]d) Severe comorbid illness (eg, renal failure, heart failure, poorly controlled diabetes) The original [employer] content created by [employer] has been revised. The portions of the content which have been revised are identified through the use of italic text or in bold, and [email or web address] has neither reviewed nor approved the modified material. All other unmodified content is copyright [employer]. Please see references footnoted in the original [employer] edition 2016 Admission Criteria Met?: Yes CECILIA AYOUB July 04, 2016 10:45
[2016-07-04 10:52] VITALS: BP 170/58
[2016-07-04 14:56] VITALS: BP 108/60
[2016-07-04 19:49] VITALS: BP 121/73
[2016-07-04] MEDS: clonazePAM 0.5 MG TABLET PO PRN (21:41)
[2016-07-04] MEDS: ATORVASTATIN CALCIUM 40 MG TABLET. PO SCH (21:41)
[2016-07-04] MEDS: INSULIN DETEMIR 300 UNITS/3 ML INSULN.PEN. SQ SCH (21:50)
[2016-07-04] MEDS: ACETAMINOPHEN 325 MG TABLET. PO PRN (22:33)
[2016-07-04 23:00] VITALS: BP 107/58
[2016-07-05 03:00] VITALS: BP 83/53
[2016-07-05 07:00] VITALS: BP 119/69
[2016-07-05 07:16] LABS: BASO % 1 % (0-3); EOS % 3 % (0-3); HEMATOCRIT 30.3 % (39.0-53.0); LYMPH % 15 % (24-48); MEAN CORPUSCULAR HEMOGLOBIN 28 pg (25-35); MEAN CORPUSCULAR HGB CONC 33 g/dL (31-37); MEAN CORPUSCULAR VOLUME 84 fL (79-100); MONO % 12 % (0-9); NEUT % 70 % (31-73); PLATELET COUNT 159 x10^3/uL (140-400); RED CELL DISTRIBUTION WIDTH 16.6 % (11.5-14.5); WHITE BLOOD COUNT 6.6 x10^3/uL (4.0-11.0)
[2016-07-05 07:18] LABS: INR 3.2 (0.8-1.1); PROTHROMBIN TIME PATIENT 31.1 SEC (11.7-14.0)
[2016-07-05 07:42] LABS: CALCIUM 8.1 mg/dL (8.5-10.1); CREATININE 1.3 mg/dL (0.7-1.3); POTASSIUM 3.7 mmol/L (3.5-5.1)
[2016-07-05] MEDS: INSULIN ASPART 300 UNITS/3 ML INSULN.PEN SQ SCH ×3 (08:00→17:00)
[2016-07-05] MEDS: FUROSEMIDE 40 MG TABLET. PO SCH (09:00)
[2016-07-05] MEDS: metroNIDAZOLE 500 MG TABLET PO SCH ×3 (09:09→21:10)
[2016-07-05] MEDS: MULTIVITAMIN with MINERAL TABLET. PO SCH (09:09)
[2016-07-05] MEDS: POTASSIUM CHLORIDE 20 MEQ TABLET.ER. PO SCH (09:09)
[2016-07-05] MEDS: LINAGLIPTIN 5 MG TABLET PO SCH (09:09)
[2016-07-05 10:53] VITALS: BP 116/69
--- NOTE | 2016-07-05 11:30 | PDOC ---
PROGRESS NOTES Chief Complaint Chief Complaint 1. Diarrhea-Dehydration 2. Positive C. Diff. 3. AFIB 4. CHF 5. Hyperlipidemia 6. COPD 7. GERD 8. Chronic renal insuff 9. Diabetes History of Present Illness History of Present Illness Patient seen this am in room in [facility]. Notified patient that we would consult GI. Spoke with nurse about holding patient's furosemide, since last bp was 83/53. Explained to patient we would continue antibiotics to combat C.Diff. Patient understands plan of action. Vitals Vitals Vital Signs Date Time Temp Pulse Resp B/P (MAP) Pulse Ox O2 Delivery O2 Flow Rate FiO2 07/05/16 10:53 97.9 18 18 116/69 (85) 95 Room Air 97.9 Physical Exam General: Alert, Cooperative, No acute distress Heart: Regular rate, Normal S1, Normal S2 Lungs: Clear Abdomen: Soft, No hepatosplenomegaly, No masses Extremities: No clubbing, No cyanosis, Other (chroncimlynmphedema, old hyperpigmenattion, some weeping lesions, none erythematous) Skin: No breakdown, No significant lesion, Other (as above) Labs LABS Laboratory Tests Test 07/04/16 16:29 07/04/16 21:23 07/05/16 06:55 07/05/16 07:30 Glucose (Fingerstick) 95 mg/dL (70-99) 177 mg/dL (70-99) 105 mg/dL (70-99) White Blood Count 6.6 x10^3/uL (4.0-11.0) Red Blood Count 3.60 x10^6/uL (4.30-5.70) Hemoglobin 10.0 g/dL (13.0-17.5) Hematocrit 30.3 % (39.0-53.0) Mean Corpuscular Volume 84 fL (79-100) Mean Corpuscular Hemoglobin 28 pg (25-35) Mean Corpuscular Hemoglobin Concent 33 g/dL (31-37) Red Cell Distribution Width 16.6 % (11.5-14.5) Platelet Count 159 x10^3/uL (140-400) Neutrophils (%) (Auto) 70 % (31-73) Lymphocytes (%) (Auto) 15 % (24-48) Monocytes (%) (Auto) 12 % (0-9) Eosinophils (%) (Auto) 3 % (0-3) Basophils (%) (Auto) 1 % (0-3) Neutrophils # (Auto) 4.6 x10^3uL (1.8-7.7) Lymphocytes # (Auto) 1.0 x10^3/uL (1.0-4.8) Monocytes # (Auto) 0.8 x10^3/uL (0.0-1.1) Eosinophils # (Auto) 0.2 x10^3/uL (0.0-0.7) Basophils # (Auto) 0.0 x10^3/uL (0.0-0.2) Prothrombin Time 31.1 SEC (11.7-14.0) Prothromb Time International Ratio 3.2 (0.8-1.1) Sodium Level 141 mmol/L (136-145) Potassium Level 3.7 mmol/L (3.5-5.1) Chloride Level 106 mmol/L (98-107) Carbon Dioxide Level 29 mmol/L (21-32) Anion Gap 6 (6-14) Blood Urea Nitrogen 16 mg/dL (8-26) Creatinine 1.3 mg/dL (0.7-1.3) Estimated GFR (Cockcroft-Gault) 52.0 Glucose Level 102 mg/dL (70-99) Calcium Level 8.1 mg/dL (8.5-10.1) Test 07/05/16 10:28 Glucose (Fingerstick) 151 mg/dL (70-99) Review of Systems Review of Systems No AWAN/blurry vision No rash No chest pain No JVD Assessment and Plan Assessmemt and Plan Problems Medical Problems: (1) Dehydration Status: Acute (2) Lower extremity edema Status: Acute 3. Positive C. Diff. 4. AFIB 5. CHF 6. Hyperlipidemia 7. COPD 8. GERD 9. Chronic renal insuff 10. Diabetes Plan: -Continue current medications and adjust accordingly as needed. -Flagyl for C. Diff. -Continue contact precautions due to positive C. Diff. -Continue PT/OT. -Continue daily blood draws, since potassium was previously replaced. -Consult GI for C. Diff. -Hold furosemide today bc bp 83/53. Will resume at half dose tomorrow (07/05/16 ) if bp improves. Problems: Comment Review of Relevant I have reviewed the following items faby (where applicable) has been applied. Labs Laboratory Tests Test 07/03/16 16:50 07/03/16 21:13 07/04/16 04:15 07/04/16 07:22 Glucose (Fingerstick) 85 mg/dL (70-99) 99 mg/dL (70-99) 75 mg/dL (70-99) Prothrombin Time 38.3 SEC (11.7-14.0) Prothromb Time International Ratio 4.2 (0.8-1.1) Test 07/04/16 10:33 07/04/16 16:29 07/04/16 21:23 07/05/16 06:55 Glucose (Fingerstick) 157 mg/dL (70-99) 95 mg/dL (70-99) 177 mg/dL (70-99) White Blood Count 6.6 x10^3/uL (4.0-11.0) Red Blood Count 3.60 x10^6/uL (4.30-5.70) Hemoglobin 10.0 g/dL (13.0-17.5) Hematocrit 30.3 % (39.0-53.0) Mean Corpuscular Volume 84 fL (79-100) Mean Corpuscular Hemoglobin 28 pg (25-35) Mean Corpuscular Hemoglobin Concent 33 g/dL (31-37) Red Cell Distribution Width 16.6 % (11.5-14.5) Platelet Count 159 x10^3/uL (140-400) Neutrophils (%) (Auto) 70 % (31-73) Lymphocytes (%) (Auto) 15 % (24-48) Monocytes (%) (Auto) 12 % (0-9) Eosinophils (%) (Auto) 3 % (0-3) Basophils (%) (Auto) 1 % (0-3) Neutrophils # (Auto) 4.6 x10^3uL (1.8-7.7) Lymphocytes # (Auto) 1.0 x10^3/uL (1.0-4.8) Monocytes # (Auto) 0.8 x10^3/uL (0.0-1.1) Eosinophils # (Auto) 0.2 x10^3/uL (0.0-0.7) Basophils # (Auto) 0.0 x10^3/uL (0.0-0.2) Prothrombin Time 31.1 SEC (11.7-14.0) Prothromb Time International Ratio 3.2 (0.8-1.1) Sodium Level 141 mmol/L (136-145) Potassium Level 3.7 mmol/L (3.5-5.1) Chloride Level 106 mmol/L (98-107) Carbon Dioxide Level 29 mmol/L (21-32) Anion Gap 6 (6-14) Blood Urea Nitrogen 16 mg/dL (8-26) Creatinine 1.3 mg/dL (0.7-1.3) Estimated GFR (Cockcroft-Gault) 52.0 Glucose Level 102 mg/dL (70-99) Calcium Level 8.1 mg/dL (8.5-10.1) Test 07/05/16 07:30 07/05/16 10:28 Glucose (Fingerstick) 105 mg/dL (70-99) 151 mg/dL (70-99) Laboratory Tests Test 07/04/16 16:29 07/04/16 21:23 07/05/16 06:55 07/05/16 07:30 Glucose (Fingerstick) 95 mg/dL (70-99) 177 mg/dL (70-99) 105 mg/dL (70-99) White Blood Count 6.6 x10^3/uL (4.0-11.0) Red Blood Count 3.60 x10^6/uL (4.30-5.70) Hemoglobin 10.0 g/dL (13.0-17.5) Hematocrit 30.3 % (39.0-53.0) Mean Corpuscular Volume 84 fL (79-100) Mean Corpuscular Hemoglobin 28 pg (25-35) Mean Corpuscular Hemoglobin Concent 33 g/dL (31-37) Red Cell Distribution Width 16.6 % (11.5-14.5) Platelet Count 159 x10^3/uL (140-400) Neutrophils (%) (Auto) 70 % (31-73) Lymphocytes (%) (Auto) 15 % (24-48) Monocytes (%) (Auto) 12 % (0-9) Eosinophils (%) (Auto) 3 % (0-3) Basophils (%) (Auto) 1 % (0-3) Neutrophils # (Auto) 4.6 x10^3uL (1.8-7.7) Lymphocytes # (Auto) 1.0 x10^3/uL (1.0-4.8) Monocytes # (Auto) 0.8 x10^3/uL (0.0-1.1) Eosinophils # (Auto) 0.2 x10^3/uL (0.0-0.7) Basophils # (Auto) 0.0 x10^3/uL (0.0-0.2) Prothrombin Time 31.1 SEC (11.7-14.0) Prothromb Time International Ratio 3.2 (0.8-1.1) Sodium Level 141 mmol/L (136-145) Potassium Level 3.7 mmol/L (3.5-5.1) Chloride Level 106 mmol/L (98-107) Carbon Dioxide Level 29 mmol/L (21-32) Anion Gap 6 (6-14) Blood Urea Nitrogen 16 mg/dL (8-26) Creatinine 1.3 mg/dL (0.7-1.3) Estimated GFR (Cockcroft-Gault) 52.0 Glucose Level 102 mg/dL (70-99) Calcium Level 8.1 mg/dL (8.5-10.1) Test 07/05/16 10:28 Glucose (Fingerstick) 151 mg/dL (70-99) Medications Current Medications Sodium Chloride 250 ml @ 250 mls/hr 1X ONCE IV Last administered on 14:25; Start 07/02/16 at 14:00; Stop 07/02/16 at 14:59; Status DC Furosemide (Lasix) 40 mg 1X ONCE IVP Last administered on 07/02/16 15:23; Start 07/02/16 at 15:00; Stop 07/02/16 at 15:01; Status DC Ondansetron HCl (Zofran) 4 mg PRN Q8HRS PRN IV NAUSEA/VOMITING; Start 07/02/16 at 15:15; Stop 07/02/16 at 16:29; Status DC Sodium Chloride 1,000 ml @ 100 mls/hr Q10H IV Last administered on 07/03/16 01:38; Start 07/02/16 at 15:03; Stop 07/03/16 at 11:24; Status DC Ondansetron HCl (Zofran) 4 mg PRN Q6HRS PRN IV NAUSEA/VOMITING; Start 07/02/16 at 16:26; Stop 07/03/16 at 16:25; Status DC Bisacodyl (Dulcolax Tab) 10 mg PRN DAILY PRN PO CONSTIPATION; Start 07/02/16 at 16:30 Clonazepam (KlonoPIN) 0.5 mg PRN QHS PRN PO ANXIETY Last administered on 21:41; Start 07/02/16 at 16:30 Diltiazem HCl (Cardizem 24hr Cd) 240 mg DAILY PO Last administered on 09:09; Start 07/03/16 at 09:00 Furosemide (Lasix) 40 mg DAILY PO Last administered on 07/04/16 08:40; Start 07/03/16 at 09:00 Insulin Detemir (Levemir) 20 units QHS SQ Last administered on 07/04/16 21:50 ; Start 07/02/16 at 21:00 Magnesium Hydroxide (Milk Of Magnesia) 400 mg PRN DAILY PRN PO CONSTIPATION; Start 07/02/16 at 16:30 Warfarin Sodium (Coumadin) 6 mg DAILY16 PO Last administered on 07/03/16 16:23 ; Start 07/02/16 at 19:30; Stop 07/04/16 at 15:34; Status DC Albuterol Sulfate (Ventolin Neb Soln) 2.5 mg PRN Q4HRS PRN NEB SHORTNESS OF BREATH; Start 07/02/16 at 19:00 Non-Formulary Medication 1 cap BID PO ; Start 07/02/16 at 21:00; Status UNV Al Hydroxide/Mg Hydroxide (Mylanta Plus Xs) 30 ml PRN DAILY PRN PO HEARTBURN / GAS; Start 07/02/16 at 19:00 Multivitamins (Thera M Plus) 1 tab DAILY PO Last administered on 07/05/16 09: 09; Start 07/03/16 at 09:00 Potassium Chloride (Klor-Con) 20 meq DAILYWBKFT PO Last administered on 08:48; Start 07/03/16 at 08:00; Stop 07/03/16 at 10:55; Status DC Atorvastatin Calcium (Lipitor) 40 mg QHS PO Last administered on 07/04/16 21: 41; Start 07/02/16 at 21:00 Linagliptin (Tradjenta) 5 mg DAILY PO Last administered on 07/05/16 09:09; Start 07/03/16 at 09:00 Insulin Aspart (NovoLOG) 0-9 UNITS TIDWMEALS SQ Last administered on 07/04/16 12:05; Start 07/02/16 at 18:00 Dextrose (Dextrose 50%-Water Syringe) 12.5 gm PRN Q15MIN PRN IV SEE COMMENTS; Start 07/02/16 at 16:30 Warfarin Sodium (Coumadin Per Physician) 1 each PRN DAILY PRN MC SEE COMMENTS Last administered on 07/03/16 07:51; Start 07/02/16 at 19:00 Acetaminophen (Tylenol) 650 mg PRN Q6HRS PRN PO pain Last administered on 22:33; Start 07/02/16 at 21:30 Potassium Chloride (Klor-Con) 40 meq 1X ONCE PO Last administered on 21:52; Start 07/02/16 at 21:30; Stop 07/02/16 at 21:31; Status DC Potassium Chloride (Klor-Con) 40 meq DAILYWBKFT PO Last administered on 09:09; Start 07/04/16 at 08:00 Potassium Chloride (Klor-Con) 40 meq 1X ONCE PO Last administered on 11:39; Start 07/03/16 at 11:00; Stop 07/03/16 at 11:01; Status DC Loperamide HCl (Imodium) 2 mg PRN Q15MIN PRN PO DIARRHEA; Start 07/03/16 at 11: 45 Metronidazole (Flagyl) 500 mg TID PO Last administered on 07/05/16 09:09; Start 07/04/16 at 09:00 Active Scripts Active Doxycycline Hyclate 100 Mg Capsule 1 Cap PO BID Ventolin Hfa Inhaler (Albuterol Sulfate) 18 Gm Hfa.aer.ad 2 Puff INH Q4HRS PRN Levemir Flextouch (Insulin Detemir) 300 Units/3 Ml Insuln.pen 20 Units SQ QHS Reported Crestor (Rosuvastatin Calcium) 10 Mg Tablet 10 Mg PO HS Januvia (Sitagliptin Phosphate) 100 Mg Tablet 100 Mg PO DAILY Cartia Xt (Diltiazem Hcl) 240 Mg Cap.er.24h 240 Mg PO Furosemide 40 Mg Tablet 1 Tab PO DAILY Gave this am Take again tomorrow morning Rulox Suspension (Mag Hydrox/Al Hydrox/Simeth) 355 Ml Oral.susp 355 Ml PO DAILY PRN Not given on this admission take as needed for heartburn Milk Of Magnesia (Magnesium Hydroxide) 400 Mg/5 Ml Oral.susp 400 Mg PO DAILY PRN Not given on this admission take as needed for constipation Dulcolax (Bisacodyl) 5 Mg Tablet.dr 10 Mg RC PRN DAILY PRN Not given on this admission Take as needed for constipation Clonazepam 0.5 Mg Tablet 0.5 Mg PO HS PRN Not given on this admission Take as needed for anxiety Warfarin Sodium 2 Mg Tablet 6 Mg PO DAILY Gave yesterday at 5pm Take again this evening Potassium Cl 25 Meq Tab Eff (Pot Chloride/Pot Bicarb/Cit Ac) 25 Meq Tablet.eff 20 Meq PO DAILY Gave this am Take again tomorrow morning Multi Vitamin Daily (Multivitamin) 1 Each Tablet 1 Each PO DAILY Gave this am Take again tomorrow morning Vitals/I & O Vital Sign - Last 24 Hours 07/04/16 07/04/16 07/04/16 07/04/16 14:56 19:49 19:50 23:00 Temp 98.0 98.0 98.2 98.0 98.0 98.2 Pulse 58 69 79 Resp 20 20 22 B/P (MAP) 108/60 (76) 121/73 (89) 107/58 (74) Pulse Ox 94 95 93 O2 Delivery Room Air Room Air Room Air 07/05/16 07/05/16 07/05/16 07/05/16 03:00 07:00 09:09 10:53 Temp 98.0 97.9 97.9 98.0 97.9 97.9 Pulse 70 69 69 18 Resp 18 18 18 B/P (MAP) 83/53 (63) 119/69 (86) 119/69 116/69 (85) Pulse Ox 92 91 95 O2 Delivery Room Air Room Air Intake and Output 07/04/16 07/04/16 07/05/16 15:00 23:00 07:00 Intake Total 180 ml 660 ml 350 ml Output Total 250 ml 350 ml 500 ml Balance -70 ml 310 ml -150 ml MK CAMARILLO III DO July 05, 2016 11:29
--- NOTE | 2016-07-05 14:11 | PDOC2 ---
GI CONSULT Reason For Consult: C Diff HPI: HPI: 89 y/o male brought to ER from living facility w/ worsening diarrhea and LE swelling, found to be positive for C Diff, already started on Flagyl TID PO. No previous C Diff infection, no recent antibiotic use. Estimates diarrhea began ~1 week ago. Occurs several times during the day and also wakes him up during the night. Some abdominal "gas" discomfort. Denies hematochezia or melena. Recalls several previous colonoscopies and EGDs. At one point had a "bleeding ulcer" treated with "a little pill." Occasional reflux w/ PRN treatment now. Says didn't eat much yesterday but now "eating everything in sight." Note on Warfarin for A Fib. PMH: PMH: CHF, A Fib, rheumatic fever, HTN, HLD, TOBIAS, peripheral neuropathy, DM, GERD, ? PUD, hiatal hernia, urinary retention, arthritis, DDD, osteoporosis, BLE cellulitis/edema, inguinal hernia repair FH: Family History: Cancer (siblings - unsure type) Social History: Smoke: No ALCOHOL: none Drugs: None ROS: GEN: Denies fevers, chills, sweats HEENT: Denies blurred vision, sore throat CV: Denies chest pain RESP: +SOA GI: Per HPI : Denies hematuria, dysuria ENDO: Denies weight changes NEURO: Denies confusion, dizziness MSK: +BLE swelling, pain SKIN: Denies jaundice, pruritus Vitals: Vitals: Vital Signs Date Time Temp Pulse Resp B/P (MAP) Pulse Ox O2 Delivery O2 Flow Rate FiO2 07/05/16 10:53 97.9 18 18 116/69 (85) 95 Room Air 97.9 Labs: Labs: Laboratory Tests Test 07/04/16 16:29 07/04/16 21:23 07/05/16 06:55 07/05/16 07:30 Glucose (Fingerstick) 95 mg/dL (70-99) 177 mg/dL (70-99) 105 mg/dL (70-99) White Blood Count 6.6 x10^3/uL (4.0-11.0) Red Blood Count 3.60 x10^6/uL (4.30-5.70) Hemoglobin 10.0 g/dL (13.0-17.5) Hematocrit 30.3 % (39.0-53.0) Mean Corpuscular Volume 84 fL (79-100) Mean Corpuscular Hemoglobin 28 pg (25-35) Mean Corpuscular Hemoglobin Concent 33 g/dL (31-37) Red Cell Distribution Width 16.6 % (11.5-14.5) Platelet Count 159 x10^3/uL (140-400) Neutrophils (%) (Auto) 70 % (31-73) Lymphocytes (%) (Auto) 15 % (24-48) Monocytes (%) (Auto) 12 % (0-9) Eosinophils (%) (Auto) 3 % (0-3) Basophils (%) (Auto) 1 % (0-3) Neutrophils # (Auto) 4.6 x10^3uL (1.8-7.7) Lymphocytes # (Auto) 1.0 x10^3/uL (1.0-4.8) Monocytes # (Auto) 0.8 x10^3/uL (0.0-1.1) Eosinophils # (Auto) 0.2 x10^3/uL (0.0-0.7) Basophils # (Auto) 0.0 x10^3/uL (0.0-0.2) Prothrombin Time 31.1 SEC (11.7-14.0) Prothromb Time International Ratio 3.2 (0.8-1.1) Sodium Level 141 mmol/L (136-145) Potassium Level 3.7 mmol/L (3.5-5.1) Chloride Level 106 mmol/L (98-107) Carbon Dioxide Level 29 mmol/L (21-32) Anion Gap 6 (6-14) Blood Urea Nitrogen 16 mg/dL (8-26) Creatinine 1.3 mg/dL (0.7-1.3) Estimated GFR (Cockcroft-Gault) 52.0 Glucose Level 102 mg/dL (70-99) Calcium Level 8.1 mg/dL (8.5-10.1) Test 07/05/16 10:28 Glucose (Fingerstick) 151 mg/dL (70-99) Allergies: Coded Allergies: No Known Drug Allergies (Unverified , 12/05/14) Medications: Please see EMR. Imaging: Imaging: CXR There is a moderate size retrocardiac mass due to the patient's known hiatal hernia. The heart is at the upper limits of normal in size. There is calcific plaquing and tortuosity of the thoracic aorta. The pulmonary vascularity is normal. A density projected over the cardiac apex is probably due to a prominent epicardial fat pad. No pulmonary infiltrate is seen. There is no evidence of pleural fluid. IMPRESSION: 1. Chronic findings as described above. 2. No acute cardiopulmonary abnormality is detected. PE: GEN: NAD, on commode HEENT: Atraumatic, PERRL LUNGS: decreased anteriorly HEART: RRR ABD: BS+, obese, non-tender EXTREMITY: chronic lymphedema NEURO/PSYCH: A & O 3 A/P: A/P: C Diff diarrhea -first episode -on PO Flagyl -3 stools charted today Occasional GERD, ?h/o PUD -PRN treatment, EGDs years ago CRC screen -recalls several colonoscopies Chronic lymphedema Anemia -long h/o this -- Continue Flagyl, monitor diarrhea. Other per Dr. Ashley. DEBBIE VÁZQUEZ July 05, 2016 14:11
[2016-07-05 14:52] VITALS: BP 118/67
[2016-07-05 19:00] VITALS: BP 103/52
[2016-07-05] MEDS: ATORVASTATIN CALCIUM 40 MG TABLET. PO SCH (21:10)
[2016-07-05] MEDS: INSULIN DETEMIR 300 UNITS/3 ML INSULN.PEN. SQ SCH (21:18)
[2016-07-05] MEDS: ACETAMINOPHEN 325 MG TABLET. PO PRN (22:59)
[2016-07-05 23:00] VITALS: BP 111/67
[2016-07-06 03:00] VITALS: BP 100/69
[2016-07-06 03:52] LABS: BASO % 1 % (0-3); EOS % 4 % (0-3); HEMATOCRIT 30.6 % (39.0-53.0); HEMOGLOBIN 10.1 g/dL (13.0-17.5); LYMPH # 1.1 x10^3/uL (1.0-4.8); LYMPH % 19 % (24-48); MEAN CORPUSCULAR HEMOGLOBIN 28 pg (25-35); MEAN CORPUSCULAR HGB CONC 33 g/dL (31-37); MEAN CORPUSCULAR VOLUME 84 fL (79-100); MONO % 13 % (0-9); NEUT % 64 % (31-73); PLATELET COUNT 160 x10^3/uL (140-400); RED BLOOD COUNT 3.64 x10^6/uL (4.30-5.70); RED CELL DISTRIBUTION WIDTH 16.3 % (11.5-14.5); WHITE BLOOD COUNT 5.8 x10^3/uL (4.0-11.0)
[2016-07-06 04:24] LABS: CALCIUM 8.2 mg/dL (8.5-10.1); CREATININE 1.3 mg/dL (0.7-1.3); POTASSIUM 3.8 mmol/L (3.5-5.1)
[2016-07-06 06:58] VITALS: BP 117/79
[2016-07-06] MEDS: INSULIN ASPART 300 UNITS/3 ML INSULN.PEN SQ SCH ×3 (08:00→16:59)
[2016-07-06] MEDS: metroNIDAZOLE 500 MG TABLET PO SCH ×3 (08:41→20:55)
[2016-07-06] MEDS: POTASSIUM CHLORIDE 20 MEQ TABLET.ER. PO SCH (08:41)
[2016-07-06] MEDS: LINAGLIPTIN 5 MG TABLET PO SCH (08:42)
[2016-07-06] MEDS: MULTIVITAMIN with MINERAL TABLET. PO SCH (08:42)
[2016-07-06 10:38] VITALS: BP 125/72
--- NOTE | 2016-07-06 10:43 | PDOC ---
PROGRESS NOTES Chief Complaint Chief Complaint 1. Diarrhea-Dehydration 2. Positive C. Diff. 3. AFIB 4. CHF 5. Hyperlipidemia 6. COPD 7. GERD 8. Chronic renal insuff 9. Diabetes History of Present Illness History of Present Illness Patient seen this am in room in [facility]. Patient stated he was uncomfortable and needed to urinate. Patient mentioned he continues to have some diarrhea. With +1440 ml balance at the time, the team asked the nurse to conduct a post- void residual exam. This was unremarkable. Discussed with patient about SNU eval. Vitals Vitals Vital Signs Date Time Temp Pulse Resp B/P (MAP) Pulse Ox O2 Delivery O2 Flow Rate FiO2 07/06/16 08:42 79 117/79 07/06/16 08:00 Room Air 07/06/16 06:58 98.3 20 91 98.3 Physical Exam General: Alert, Cooperative, No acute distress Heart: Regular rate, Normal S1, Normal S2 Lungs: Clear Abdomen: Soft, No hepatosplenomegaly, No masses Extremities: No clubbing, No cyanosis, Other (chroncimlynmphedema, old hyperpigmenattion, some weeping lesions, none erythematous) Skin: No breakdown, No significant lesion, Other (as above) Labs LABS Laboratory Tests Test 07/05/16 16:25 07/05/16 20:57 07/06/16 03:05 07/06/16 07:17 Glucose (Fingerstick) 130 mg/dL (70-99) 138 mg/dL (70-99) 114 mg/dL (70-99) White Blood Count 5.8 x10^3/uL (4.0-11.0) Red Blood Count 3.64 x10^6/uL (4.30-5.70) Hemoglobin 10.1 g/dL (13.0-17.5) Hematocrit 30.6 % (39.0-53.0) Mean Corpuscular Volume 84 fL (79-100) Mean Corpuscular Hemoglobin 28 pg (25-35) Mean Corpuscular Hemoglobin Concent 33 g/dL (31-37) Red Cell Distribution Width 16.3 % (11.5-14.5) Platelet Count 160 x10^3/uL (140-400) Neutrophils (%) (Auto) 64 % (31-73) Lymphocytes (%) (Auto) 19 % (24-48) Monocytes (%) (Auto) 13 % (0-9) Eosinophils (%) (Auto) 4 % (0-3) Basophils (%) (Auto) 1 % (0-3) Neutrophils # (Auto) 3.7 x10^3uL (1.8-7.7) Lymphocytes # (Auto) 1.1 x10^3/uL (1.0-4.8) Monocytes # (Auto) 0.7 x10^3/uL (0.0-1.1) Eosinophils # (Auto) 0.2 x10^3/uL (0.0-0.7) Basophils # (Auto) 0.0 x10^3/uL (0.0-0.2) Sodium Level 142 mmol/L (136-145) Potassium Level 3.8 mmol/L (3.5-5.1) Chloride Level 107 mmol/L (98-107) Carbon Dioxide Level 29 mmol/L (21-32) Anion Gap 6 (6-14) Blood Urea Nitrogen 17 mg/dL (8-26) Creatinine 1.3 mg/dL (0.7-1.3) Estimated GFR (Cockcroft-Gault) 52.0 Glucose Level 108 mg/dL (70-99) Calcium Level 8.2 mg/dL (8.5-10.1) Review of Systems Review of Systems No chest pain No rashes No AWAN/blurry vision Assessment and Plan Assessmemt and Plan Problems Medical Problems: (1) Dehydration Status: Acute (2) Lower extremity edema Status: Acute 3. Positive C. Diff. 4. AFIB 5. CHF 6. Hyperlipidemia 7. COPD 8. GERD 9. Chronic renal insuff 10. Diabetes Plan: -Continue current medications and adjust accordingly as needed. -Flagyl for C. Diff. -Continue contact precautions due to positive C. Diff. -Continue PT/OT. -Continue GI consult for C. Diff. -Will continue to hold furosemide today (07/06/16) bc bp 100/69. Held furosemide yesterday (07/05/16) bc bp 83/53. Will resume at half dose tomorrow ( 07/07/16) if bp improves. -Will put in SNU eval. Problems: Comment Review of Relevant I have reviewed the following items faby (where applicable) has been applied. Labs Laboratory Tests Test 07/04/16 16:29 07/04/16 21:23 07/05/16 06:55 07/05/16 07:30 Glucose (Fingerstick) 95 mg/dL (70-99) 177 mg/dL (70-99) 105 mg/dL (70-99) White Blood Count 6.6 x10^3/uL (4.0-11.0) Red Blood Count 3.60 x10^6/uL (4.30-5.70) Hemoglobin 10.0 g/dL (13.0-17.5) Hematocrit 30.3 % (39.0-53.0) Mean Corpuscular Volume 84 fL (79-100) Mean Corpuscular Hemoglobin 28 pg (25-35) Mean Corpuscular Hemoglobin Concent 33 g/dL (31-37) Red Cell Distribution Width 16.6 % (11.5-14.5) Platelet Count 159 x10^3/uL (140-400) Neutrophils (%) (Auto) 70 % (31-73) Lymphocytes (%) (Auto) 15 % (24-48) Monocytes (%) (Auto) 12 % (0-9) Eosinophils (%) (Auto) 3 % (0-3) Basophils (%) (Auto) 1 % (0-3) Neutrophils # (Auto) 4.6 x10^3uL (1.8-7.7) Lymphocytes # (Auto) 1.0 x10^3/uL (1.0-4.8) Monocytes # (Auto) 0.8 x10^3/uL (0.0-1.1) Eosinophils # (Auto) 0.2 x10^3/uL (0.0-0.7) Basophils # (Auto) 0.0 x10^3/uL (0.0-0.2) Prothrombin Time 31.1 SEC (11.7-14.0) Prothromb Time International Ratio 3.2 (0.8-1.1) Sodium Level 141 mmol/L (136-145) Potassium Level 3.7 mmol/L (3.5-5.1) Chloride Level 106 mmol/L (98-107) Carbon Dioxide Level 29 mmol/L (21-32) Anion Gap 6 (6-14) Blood Urea Nitrogen 16 mg/dL (8-26) Creatinine 1.3 mg/dL (0.7-1.3) Estimated GFR (Cockcroft-Gault) 52.0 Glucose Level 102 mg/dL (70-99) Calcium Level 8.1 mg/dL (8.5-10.1) Test 07/05/16 10:28 07/05/16 16:25 07/05/16 20:57 07/06/16 03:05 Glucose (Fingerstick) 151 mg/dL (70-99) 130 mg/dL (70-99) 138 mg/dL (70-99) White Blood Count 5.8 x10^3/uL (4.0-11.0) Red Blood Count 3.64 x10^6/uL (4.30-5.70) Hemoglobin 10.1 g/dL (13.0-17.5) Hematocrit 30.6 % (39.0-53.0) Mean Corpuscular Volume 84 fL (79-100) Mean Corpuscular Hemoglobin 28 pg (25-35) Mean Corpuscular Hemoglobin Concent 33 g/dL (31-37) Red Cell Distribution Width 16.3 % (11.5-14.5) Platelet Count 160 x10^3/uL (140-400) Neutrophils (%) (Auto) 64 % (31-73) Lymphocytes (%) (Auto) 19 % (24-48) Monocytes (%) (Auto) 13 % (0-9) Eosinophils (%) (Auto) 4 % (0-3) Basophils (%) (Auto) 1 % (0-3) Neutrophils # (Auto) 3.7 x10^3uL (1.8-7.7) Lymphocytes # (Auto) 1.1 x10^3/uL (1.0-4.8) Monocytes # (Auto) 0.7 x10^3/uL (0.0-1.1) Eosinophils # (Auto) 0.2 x10^3/uL (0.0-0.7) Basophils # (Auto) 0.0 x10^3/uL (0.0-0.2) Sodium Level 142 mmol/L (136-145) Potassium Level 3.8 mmol/L (3.5-5.1) Chloride Level 107 mmol/L (98-107) Carbon Dioxide Level 29 mmol/L (21-32) Anion Gap 6 (6-14) Blood Urea Nitrogen 17 mg/dL (8-26) Creatinine 1.3 mg/dL (0.7-1.3) Estimated GFR (Cockcroft-Gault) 52.0 Glucose Level 108 mg/dL (70-99) Calcium Level 8.2 mg/dL (8.5-10.1) Test 07/06/16 07:17 Glucose (Fingerstick) 114 mg/dL (70-99) Laboratory Tests Test 07/05/16 16:25 07/05/16 20:57 07/06/16 03:05 07/06/16 07:17 Glucose (Fingerstick) 130 mg/dL (70-99) 138 mg/dL (70-99) 114 mg/dL (70-99) White Blood Count 5.8 x10^3/uL (4.0-11.0) Red Blood Count 3.64 x10^6/uL (4.30-5.70) Hemoglobin 10.1 g/dL (13.0-17.5) Hematocrit 30.6 % (39.0-53.0) Mean Corpuscular Volume 84 fL (79-100) Mean Corpuscular Hemoglobin 28 pg (25-35) Mean Corpuscular Hemoglobin Concent 33 g/dL (31-37) Red Cell Distribution Width 16.3 % (11.5-14.5) Platelet Count 160 x10^3/uL (140-400) Neutrophils (%) (Auto) 64 % (31-73) Lymphocytes (%) (Auto) 19 % (24-48) Monocytes (%) (Auto) 13 % (0-9) Eosinophils (%) (Auto) 4 % (0-3) Basophils (%) (Auto) 1 % (0-3) Neutrophils # (Auto) 3.7 x10^3uL (1.8-7.7) Lymphocytes # (Auto) 1.1 x10^3/uL (1.0-4.8) Monocytes # (Auto) 0.7 x10^3/uL (0.0-1.1) Eosinophils # (Auto) 0.2 x10^3/uL (0.0-0.7) Basophils # (Auto) 0.0 x10^3/uL (0.0-0.2) Sodium Level 142 mmol/L (136-145) Potassium Level 3.8 mmol/L (3.5-5.1) Chloride Level 107 mmol/L (98-107) Carbon Dioxide Level 29 mmol/L (21-32) Anion Gap 6 (6-14) Blood Urea Nitrogen 17 mg/dL (8-26) Creatinine 1.3 mg/dL (0.7-1.3) Estimated GFR (Cockcroft-Gault) 52.0 Glucose Level 108 mg/dL (70-99) Calcium Level 8.2 mg/dL (8.5-10.1) Medications Current Medications Sodium Chloride 250 ml @ 250 mls/hr 1X ONCE IV Last administered on 14:25; Start 07/02/16 at 14:00; Stop 07/02/16 at 14:59; Status DC Furosemide (Lasix) 40 mg 1X ONCE IVP Last administered on 07/02/16 15:23; Start 07/02/16 at 15:00; Stop 07/02/16 at 15:01; Status DC Ondansetron HCl (Zofran) 4 mg PRN Q8HRS PRN IV NAUSEA/VOMITING; Start 07/02/16 at 15:15; Stop 07/02/16 at 16:29; Status DC Sodium Chloride 1,000 ml @ 100 mls/hr Q10H IV Last administered on 07/03/16 01:38; Start 07/02/16 at 15:03; Stop 07/03/16 at 11:24; Status DC Ondansetron HCl (Zofran) 4 mg PRN Q6HRS PRN IV NAUSEA/VOMITING; Start 07/02/16 at 16:26; Stop 07/03/16 at 16:25; Status DC Bisacodyl (Dulcolax Tab) 10 mg PRN DAILY PRN PO CONSTIPATION; Start 07/02/16 at 16:30 Clonazepam (KlonoPIN) 0.5 mg PRN QHS PRN PO ANXIETY Last administered on 21:41; Start 07/02/16 at 16:30 Diltiazem HCl (Cardizem 24hr Cd) 240 mg DAILY PO Last administered on 08:42; Start 07/03/16 at 09:00 Furosemide (Lasix) 40 mg DAILY PO Last administered on 07/04/16 08:40; Start 07/03/16 at 09:00; Stop 07/05/16 at 11:46; Status DC Insulin Detemir (Levemir) 20 units QHS SQ Last administered on 07/05/16 21:18 ; Start 07/02/16 at 21:00 Magnesium Hydroxide (Milk Of Magnesia) 400 mg PRN DAILY PRN PO CONSTIPATION; Start 07/02/16 at 16:30 Warfarin Sodium (Coumadin) 6 mg DAILY16 PO Last administered on 07/03/16 16:23 ; Start 07/02/16 at 19:30; Stop 07/04/16 at 15:34; Status DC Albuterol Sulfate (Ventolin Neb Soln) 2.5 mg PRN Q4HRS PRN NEB SHORTNESS OF BREATH; Start 07/02/16 at 19:00 Non-Formulary Medication 1 cap BID PO ; Start 07/02/16 at 21:00; Status UNV Al Hydroxide/Mg Hydroxide (Mylanta Plus Xs) 30 ml PRN DAILY PRN PO HEARTBURN / GAS; Start 07/02/16 at 19:00 Multivitamins (Thera M Plus) 1 tab DAILY PO Last administered on 07/06/16 08: 42; Start 07/03/16 at 09:00 Potassium Chloride (Klor-Con) 20 meq DAILYWBKFT PO Last administered on 08:48; Start 07/03/16 at 08:00; Stop 07/03/16 at 10:55; Status DC Atorvastatin Calcium (Lipitor) 40 mg QHS PO Last administered on 07/05/16 21: 10; Start 07/02/16 at 21:00 Linagliptin (Tradjenta) 5 mg DAILY PO Last administered on 07/06/16 08:42; Start 07/03/16 at 09:00 Insulin Aspart (NovoLOG) 0-9 UNITS TIDWMEALS SQ Last administered on 07/04/16 12:05; Start 07/02/16 at 18:00 Dextrose (Dextrose 50%-Water Syringe) 12.5 gm PRN Q15MIN PRN IV SEE COMMENTS; Start 07/02/16 at 16:30 Warfarin Sodium (Coumadin Per Physician) 1 each PRN DAILY PRN MC SEE COMMENTS Last administered on 07/05/16 11:58; Start 07/02/16 at 19:00 Acetaminophen (Tylenol) 650 mg PRN Q6HRS PRN PO pain Last administered on 22:59; Start 07/02/16 at 21:30 Potassium Chloride (Klor-Con) 40 meq 1X ONCE PO Last administered on 21:52; Start 07/02/16 at 21:30; Stop 07/02/16 at 21:31; Status DC Potassium Chloride (Klor-Con) 40 meq DAILYWBKFT PO Last administered on 08:41; Start 07/04/16 at 08:00 Potassium Chloride (Klor-Con) 40 meq 1X ONCE PO Last administered on 11:39; Start 07/03/16 at 11:00; Stop 07/03/16 at 11:01; Status DC Loperamide HCl (Imodium) 2 mg PRN Q15MIN PRN PO DIARRHEA; Start 07/03/16 at 11: 45 Metronidazole (Flagyl) 500 mg TID PO Last administered on 07/06/16 08:41; Start 07/04/16 at 09:00 Active Scripts Active Doxycycline Hyclate 100 Mg Capsule 1 Cap PO BID Ventolin Hfa Inhaler (Albuterol Sulfate) 18 Gm Hfa.aer.ad 2 Puff INH Q4HRS PRN Levemir Flextouch (Insulin Detemir) 300 Units/3 Ml Insuln.pen 20 Units SQ QHS Reported Crestor (Rosuvastatin Calcium) 10 Mg Tablet 10 Mg PO HS Januvia (Sitagliptin Phosphate) 100 Mg Tablet 100 Mg PO DAILY Cartia Xt (Diltiazem Hcl) 240 Mg Cap.er.24h 240 Mg PO Furosemide 40 Mg Tablet 1 Tab PO DAILY Gave this am Take again tomorrow morning Rulox Suspension (Mag Hydrox/Al Hydrox/Simeth) 355 Ml Oral.susp 355 Ml PO DAILY PRN Not given on this admission take as needed for heartburn Milk Of Magnesia (Magnesium Hydroxide) 400 Mg/5 Ml Oral.susp 400 Mg PO DAILY PRN Not given on this admission take as needed for constipation Dulcolax (Bisacodyl) 5 Mg Tablet.dr 10 Mg RC PRN DAILY PRN Not given on this admission Take as needed for constipation Clonazepam 0.5 Mg Tablet 0.5 Mg PO HS PRN Not given on this admission Take as needed for anxiety Warfarin Sodium 2 Mg Tablet 6 Mg PO DAILY Gave yesterday at 5pm Take again this evening Potassium Cl 25 Meq Tab Eff (Pot Chloride/Pot Bicarb/Cit Ac) 25 Meq Tablet.eff 20 Meq PO DAILY Gave this am Take again tomorrow morning Multi Vitamin Daily (Multivitamin) 1 Each Tablet 1 Each PO DAILY Gave this am Take again tomorrow morning Vitals/I & O Vital Sign - Last 24 Hours 07/05/16 07/05/16 07/05/16 07/05/16 10:53 14:52 19:00 20:00 Temp 97.9 97.9 97.9 97.9 97.9 97.9 Pulse 18 65 69 Resp 18 18 20 B/P (MAP) 116/69 (85) 118/67 (84) 103/52 (69) Pulse Ox 95 96 94 O2 Delivery Room Air Room Air Room Air 07/05/16 07/06/16 07/06/16 07/06/16 23:00 03:00 06:58 08:00 Temp 97.9 97.8 98.3 97.9 97.8 98.3 Pulse 77 75 79 Resp 20 18 20 B/P (MAP) 111/67 (82) 100/69 (79) 117/79 (92) Pulse Ox 94 92 91 O2 Delivery Room Air Room Air 07/06/16 08:42 Pulse 79 B/P (MAP) 117/79 Intake and Output 07/05/16 07/05/16 07/06/16 15:00 23:00 07:00 Intake Total 500 ml 1000 ml 240 ml Output Total 851 ml Balance 500 ml 1000 ml -611 ml FARHAN CAMARILLOL K III DO July 06, 2016 10:43
--- NOTE | 2016-07-06 10:55 | PDOC ---
Objective: Objective: Per RN - received report of last stool last night. None today. Vital Signs: Vital Signs Date Time Temp Pulse Resp B/P (MAP) Pulse Ox O2 Delivery O2 Flow Rate FiO2 07/06/16 10:38 97.7 84 20 125/72 (89) 94 Room Air 97.7 Labs: Laboratory Tests Test 07/05/16 16:25 07/05/16 20:57 07/06/16 03:05 07/06/16 07:17 Glucose (Fingerstick) 130 mg/dL 138 mg/dL 114 mg/dL White Blood Count 5.8 x10^3/uL Red Blood Count 3.64 x10^6/uL Hemoglobin 10.1 g/dL Hematocrit 30.6 % Mean Corpuscular Volume 84 fL Mean Corpuscular Hemoglobin 28 pg Mean Corpuscular Hemoglobin Concent 33 g/dL Red Cell Distribution Width 16.3 % Platelet Count 160 x10^3/uL Neutrophils (%) (Auto) 64 % Lymphocytes (%) (Auto) 19 % Monocytes (%) (Auto) 13 % Eosinophils (%) (Auto) 4 % Basophils (%) (Auto) 1 % Neutrophils # (Auto) 3.7 x10^3uL Lymphocytes # (Auto) 1.1 x10^3/uL Monocytes # (Auto) 0.7 x10^3/uL Eosinophils # (Auto) 0.2 x10^3/uL Basophils # (Auto) 0.0 x10^3/uL Sodium Level 142 mmol/L Potassium Level 3.8 mmol/L Chloride Level 107 mmol/L Carbon Dioxide Level 29 mmol/L Anion Gap 6 Blood Urea Nitrogen 17 mg/dL Creatinine 1.3 mg/dL Estimated GFR (Cockcroft-Gault) 52.0 Glucose Level 108 mg/dL Calcium Level 8.2 mg/dL PE: GEN: NAD, talking on phone, then asleep when came by again LUNGS: clear HEART: S1S2 ABD: S/ND/NT NEURO/PSYCH: A & O 3 A/P: C Diff diarrhea - improving -first episode, probably healthcare acquired (Came from living facilty), on PO Flagyl Anemia -long h/o this, reports previous EGDs and colonoscopies -- Continue treatment for C Diff. DEBBIE VÁZQUEZ July 06, 2016 10:55
[2016-07-06 14:44] VITALS: BP 103/60
[2016-07-06 19:00] VITALS: BP 135/69
[2016-07-06] MEDS: ATORVASTATIN CALCIUM 40 MG TABLET. PO SCH (20:55)
[2016-07-06] MEDS: INSULIN DETEMIR 300 UNITS/3 ML INSULN.PEN. SQ SCH (21:11)
[2016-07-06 22:29] VITALS: BP 123/70
[2016-07-07] MEDS: ACETAMINOPHEN 325 MG TABLET. PO PRN (01:24)
[2016-07-07 05:18] LABS: BASO % 1 % (0-3); EOS % 3 % (0-3); HEMATOCRIT 31.1 % (39.0-53.0); HEMOGLOBIN 10.4 g/dL (13.0-17.5); LYMPH # 0.9 x10^3/uL (1.0-4.8); LYMPH % 18 % (24-48); MEAN CORPUSCULAR HEMOGLOBIN 28 pg (25-35); MEAN CORPUSCULAR HGB CONC 34 g/dL (31-37); MEAN CORPUSCULAR VOLUME 84 fL (79-100); MONO % 13 % (0-9); NEUT % 65 % (31-73); PLATELET COUNT 168 x10^3/uL (140-400); RED BLOOD COUNT 3.68 x10^6/uL (4.30-5.70); RED CELL DISTRIBUTION WIDTH 16.4 % (11.5-14.5); WHITE BLOOD COUNT 5.1 x10^3/uL (4.0-11.0)
[2016-07-07 05:50] LABS: CALCIUM 8.1 mg/dL (8.5-10.1); CREATININE 1.4 mg/dL (0.7-1.3); GFR 47.7; POTASSIUM 3.7 mmol/L (3.5-5.1)
[2016-07-07] MEDS ORDERED: diphenhydrAMINE HCL 25 MG CAPSULE PO PRN (06:30)
[2016-07-07 07:00] VITALS: BP 119/72
[2016-07-07] MEDS: IPRATRPIUM/ALBUTEROL 0.5/2.5MG 3 ML NEBU. NEB SCH ×5 (07:25→22:41)
[2016-07-07] MEDS: INSULIN ASPART 300 UNITS/3 ML INSULN.PEN SQ SCH ×3 (07:48→16:36)
[2016-07-07] MEDS: POTASSIUM CHLORIDE 20 MEQ TABLET.ER. PO SCH (08:01)
[2016-07-07] MEDS: metroNIDAZOLE 500 MG TABLET PO SCH ×3 (08:01→21:07)
[2016-07-07] MEDS: MULTIVITAMIN with MINERAL TABLET. PO SCH (08:01)
[2016-07-07] MEDS: LINAGLIPTIN 5 MG TABLET PO SCH (08:01)
[2016-07-07 08:02] LABS: HCO3 ABG 27 mmol/L (21-28); PCO2 ABG 44 mmHg (35-46); PH ABG 7.41 (7.35-7.45); PO2 ABG 60 mmHg (65-108); SAT O2 ABG 91 % (92-99)
[2016-07-07 08:03] LABS: FIO2 ABG 21
--- NOTE | 2016-07-07 08:53 | PDOC ---
PROGRESS NOTES Chief Complaint Chief Complaint 1. Diarrhea-Dehydration 2. Positive C. Diff. 3. AFIB 4. CHF 5. Hyperlipidemia 6. COPD 7. GERD 8. Chronic renal insuff 9. Diabetes History of Present Illness History of Present Illness Patient seen this am in room in [facility]. Per patient, stools are improving. Verbal order given to nurse to administer Benadryl bc patient has itching. Wheezing discovered throughout lungs- will consult Dr. Foreman for COPD. Begin breathing treatments. Vitals Vitals Vital Signs Date Time Temp Pulse Resp B/P (MAP) Pulse Ox O2 Delivery O2 Flow Rate FiO2 07/07/16 08:01 69 119/72 07/07/16 07:58 Room Air 07/07/16 07:27 93 07/07/16 07:00 97.5 20 97.5 Physical Exam General: Alert, Cooperative, No acute distress Heart: Regular rate, Normal S1, Normal S2 Lungs: Wheezing Abdomen: Soft, No hepatosplenomegaly, No masses Extremities: No clubbing, No cyanosis, Other (chroncimlynmphedema, old hyperpigmenattion, some weeping lesions, none erythematous) Skin: No breakdown, No significant lesion, Other (as above) Labs LABS Laboratory Tests Test 07/06/16 11:11 07/06/16 16:56 07/06/16 20:16 07/07/16 04:30 Glucose (Fingerstick) 156 mg/dL (70-99) 114 mg/dL (70-99) 151 mg/dL (70-99) White Blood Count 5.1 x10^3/uL (4.0-11.0) Red Blood Count 3.68 x10^6/uL (4.30-5.70) Hemoglobin 10.4 g/dL (13.0-17.5) Hematocrit 31.1 % (39.0-53.0) Mean Corpuscular Volume 84 fL (79-100) Mean Corpuscular Hemoglobin 28 pg (25-35) Mean Corpuscular Hemoglobin Concent 34 g/dL (31-37) Red Cell Distribution Width 16.4 % (11.5-14.5) Platelet Count 168 x10^3/uL (140-400) Neutrophils (%) (Auto) 65 % (31-73) Lymphocytes (%) (Auto) 18 % (24-48) Monocytes (%) (Auto) 13 % (0-9) Eosinophils (%) (Auto) 3 % (0-3) Basophils (%) (Auto) 1 % (0-3) Neutrophils # (Auto) 3.3 x10^3uL (1.8-7.7) Lymphocytes # (Auto) 0.9 x10^3/uL (1.0-4.8) Monocytes # (Auto) 0.6 x10^3/uL (0.0-1.1) Eosinophils # (Auto) 0.2 x10^3/uL (0.0-0.7) Basophils # (Auto) 0.0 x10^3/uL (0.0-0.2) Sodium Level 143 mmol/L (136-145) Potassium Level 3.7 mmol/L (3.5-5.1) Chloride Level 108 mmol/L (98-107) Carbon Dioxide Level 28 mmol/L (21-32) Anion Gap 7 (6-14) Blood Urea Nitrogen 16 mg/dL (8-26) Creatinine 1.4 mg/dL (0.7-1.3) Estimated GFR (Cockcroft-Gault) 47.7 Glucose Level 108 mg/dL (70-99) Calcium Level 8.1 mg/dL (8.5-10.1) Test 07/07/16 07:09 07/07/16 07:35 O2 Saturation 91 % (92-99) Arterial Blood pH 7.41 (7.35-7.45) Arterial Blood pCO2 at Patient Temp 44 mmHg (35-46) Arterial Blood pO2 at Patient Temp 60 mmHg (65-108) Arterial Blood HCO3 27 mmol/L (21-28) Arterial Blood Base Excess 2 mmol/L (-3-3) FiO2 21 Glucose (Fingerstick) 100 mg/dL (70-99) Review of Systems Review of Systems No rashes No AWAN/blurry vision No JVD No SOB Assessment and Plan Assessmemt and Plan Problems Medical Problems: (1) Dehydration Status: Acute (2) Lower extremity edema Status: Acute 3. Positive C. Diff. 4. AFIB 5. CHF 6. Hyperlipidemia 7. COPD 8. GERD 9. Chronic renal insuff 10. Diabetes Plan: -Continue current medications and adjust accordingly as needed. -Flagyl for positive C. Diff. -Continue contact precautions for C. Diff. -Continue specialty consultations. -Consult Dr. Foreman for COPD. -Begin breathing treatments. -Continue to hold furosemide- bp normalized at 123/70. -Continue PT/OT. -D/C when specialties agree. Problems: Comment Review of Relevant I have reviewed the following items faby (where applicable) has been applied. Labs Laboratory Tests Test 07/05/16 10:28 07/05/16 16:25 07/05/16 20:57 07/06/16 03:05 Glucose (Fingerstick) 151 mg/dL (70-99) 130 mg/dL (70-99) 138 mg/dL (70-99) White Blood Count 5.8 x10^3/uL (4.0-11.0) Red Blood Count 3.64 x10^6/uL (4.30-5.70) Hemoglobin 10.1 g/dL (13.0-17.5) Hematocrit 30.6 % (39.0-53.0) Mean Corpuscular Volume 84 fL (79-100) Mean Corpuscular Hemoglobin 28 pg (25-35) Mean Corpuscular Hemoglobin Concent 33 g/dL (31-37) Red Cell Distribution Width 16.3 % (11.5-14.5) Platelet Count 160 x10^3/uL (140-400) Neutrophils (%) (Auto) 64 % (31-73) Lymphocytes (%) (Auto) 19 % (24-48) Monocytes (%) (Auto) 13 % (0-9) Eosinophils (%) (Auto) 4 % (0-3) Basophils (%) (Auto) 1 % (0-3) Neutrophils # (Auto) 3.7 x10^3uL (1.8-7.7) Lymphocytes # (Auto) 1.1 x10^3/uL (1.0-4.8) Monocytes # (Auto) 0.7 x10^3/uL (0.0-1.1) Eosinophils # (Auto) 0.2 x10^3/uL (0.0-0.7) Basophils # (Auto) 0.0 x10^3/uL (0.0-0.2) Sodium Level 142 mmol/L (136-145) Potassium Level 3.8 mmol/L (3.5-5.1) Chloride Level 107 mmol/L (98-107) Carbon Dioxide Level 29 mmol/L (21-32) Anion Gap 6 (6-14) Blood Urea Nitrogen 17 mg/dL (8-26) Creatinine 1.3 mg/dL (0.7-1.3) Estimated GFR (Cockcroft-Gault) 52.0 Glucose Level 108 mg/dL (70-99) Calcium Level 8.2 mg/dL (8.5-10.1) Test 07/06/16 07:17 07/06/16 11:11 07/06/16 16:56 07/06/16 20:16 Glucose (Fingerstick) 114 mg/dL (70-99) 156 mg/dL (70-99) 114 mg/dL (70-99) 151 mg/dL (70-99) Test 07/07/16 04:30 07/07/16 07:09 07/07/16 07:35 White Blood Count 5.1 x10^3/uL (4.0-11.0) Red Blood Count 3.68 x10^6/uL (4.30-5.70) Hemoglobin 10.4 g/dL (13.0-17.5) Hematocrit 31.1 % (39.0-53.0) Mean Corpuscular Volume 84 fL (79-100) Mean Corpuscular Hemoglobin 28 pg (25-35) Mean Corpuscular Hemoglobin Concent 34 g/dL (31-37) Red Cell Distribution Width 16.4 % (11.5-14.5) Platelet Count 168 x10^3/uL (140-400) Neutrophils (%) (Auto) 65 % (31-73) Lymphocytes (%) (Auto) 18 % (24-48) Monocytes (%) (Auto) 13 % (0-9) Eosinophils (%) (Auto) 3 % (0-3) Basophils (%) (Auto) 1 % (0-3) Neutrophils # (Auto) 3.3 x10^3uL (1.8-7.7) Lymphocytes # (Auto) 0.9 x10^3/uL (1.0-4.8) Monocytes # (Auto) 0.6 x10^3/uL (0.0-1.1) Eosinophils # (Auto) 0.2 x10^3/uL (0.0-0.7) Basophils # (Auto) 0.0 x10^3/uL (0.0-0.2) Sodium Level 143 mmol/L (136-145) Potassium Level 3.7 mmol/L (3.5-5.1) Chloride Level 108 mmol/L (98-107) Carbon Dioxide Level 28 mmol/L (21-32) Anion Gap 7 (6-14) Blood Urea Nitrogen 16 mg/dL (8-26) Creatinine 1.4 mg/dL (0.7-1.3) Estimated GFR (Cockcroft-Gault) 47.7 Glucose Level 108 mg/dL (70-99) Calcium Level 8.1 mg/dL (8.5-10.1) O2 Saturation 91 % (92-99) Arterial Blood pH 7.41 (7.35-7.45) Arterial Blood pCO2 at Patient Temp 44 mmHg (35-46) Arterial Blood pO2 at Patient Temp 60 mmHg (65-108) Arterial Blood HCO3 27 mmol/L (21-28) Arterial Blood Base Excess 2 mmol/L (-3-3) FiO2 21 Glucose (Fingerstick) 100 mg/dL (70-99) Laboratory Tests Test 07/06/16 11:11 07/06/16 16:56 07/06/16 20:16 07/07/16 04:30 Glucose (Fingerstick) 156 mg/dL (70-99) 114 mg/dL (70-99) 151 mg/dL (70-99) White Blood Count 5.1 x10^3/uL (4.0-11.0) Red Blood Count 3.68 x10^6/uL (4.30-5.70) Hemoglobin 10.4 g/dL (13.0-17.5) Hematocrit 31.1 % (39.0-53.0) Mean Corpuscular Volume 84 fL (79-100) Mean Corpuscular Hemoglobin 28 pg (25-35) Mean Corpuscular Hemoglobin Concent 34 g/dL (31-37) Red Cell Distribution Width 16.4 % (11.5-14.5) Platelet Count 168 x10^3/uL (140-400) Neutrophils (%) (Auto) 65 % (31-73) Lymphocytes (%) (Auto) 18 % (24-48) Monocytes (%) (Auto) 13 % (0-9) Eosinophils (%) (Auto) 3 % (0-3) Basophils (%) (Auto) 1 % (0-3) Neutrophils # (Auto) 3.3 x10^3uL (1.8-7.7) Lymphocytes # (Auto) 0.9 x10^3/uL (1.0-4.8) Monocytes # (Auto) 0.6 x10^3/uL (0.0-1.1) Eosinophils # (Auto) 0.2 x10^3/uL (0.0-0.7) Basophils # (Auto) 0.0 x10^3/uL (0.0-0.2) Sodium Level 143 mmol/L (136-145) Potassium Level 3.7 mmol/L (3.5-5.1) Chloride Level 108 mmol/L (98-107) Carbon Dioxide Level 28 mmol/L (21-32) Anion Gap 7 (6-14) Blood Urea Nitrogen 16 mg/dL (8-26) Creatinine 1.4 mg/dL (0.7-1.3) Estimated GFR (Cockcroft-Gault) 47.7 Glucose Level 108 mg/dL (70-99) Calcium Level 8.1 mg/dL (8.5-10.1) Test 07/07/16 07:09 07/07/16 07:35 O2 Saturation 91 % (92-99) Arterial Blood pH 7.41 (7.35-7.45) Arterial Blood pCO2 at Patient Temp 44 mmHg (35-46) Arterial Blood pO2 at Patient Temp 60 mmHg (65-108) Arterial Blood HCO3 27 mmol/L (21-28) Arterial Blood Base Excess 2 mmol/L (-3-3) FiO2 21 Glucose (Fingerstick) 100 mg/dL (70-99) Microbiology 07/03/16 Stool Culture, Resulted Pending 07/03/16 Stool Culture Result 1 (UZMA), Resulted Pending 07/03/16 Campylobacter Antigen Assay, Resulted Pending 07/03/16 Campylobactor Result 1, Resulted Pending 07/03/16 Shiga Toxin Test - Final, Resulted Medications Current Medications Sodium Chloride 250 ml @ 250 mls/hr 1X ONCE IV Last administered on t 14:25; Start 07/02/16 at 14:00; Stop 07/02/16 at 14:59; Status DC Furosemide (Lasix) 40 mg 1X ONCE IVP Last administered on 07/02/16 15:23; Start 07/02/16 at 15:00; Stop 07/02/16 at 15:01; Status DC Ondansetron HCl (Zofran) 4 mg PRN Q8HRS PRN IV NAUSEA/VOMITING; Start 07/02/16 at 15:15; Stop 07/02/16 at 16:29; Status DC Sodium Chloride 1,000 ml @ 100 mls/hr Q10H IV Last administered on 07/03/16 01:38; Start 07/02/16 at 15:03; Stop 07/03/16 at 11:24; Status DC Ondansetron HCl (Zofran) 4 mg PRN Q6HRS PRN IV NAUSEA/VOMITING; Start 07/02/16 at 16:26; Stop 07/03/16 at 16:25; Status DC Bisacodyl (Dulcolax Tab) 10 mg PRN DAILY PRN PO CONSTIPATION; Start 07/02/16 at 16:30 Clonazepam (KlonoPIN) 0.5 mg PRN QHS PRN PO ANXIETY Last administered on 21:41; Start 07/02/16 at 16:30 Diltiazem HCl (Cardizem 24hr Cd) 240 mg DAILY PO Last administered on 08:01; Start 07/03/16 at 09:00 Furosemide (Lasix) 40 mg DAILY PO Last administered on 07/04/16 08:40; Start 07/03/16 at 09:00; Stop 07/05/16 at 11:46; Status DC Insulin Detemir (Levemir) 20 units QHS SQ Last administered on 07/06/16 21:11 ; Start 07/02/16 at 21:00 Magnesium Hydroxide (Milk Of Magnesia) 400 mg PRN DAILY PRN PO CONSTIPATION; Start 07/02/16 at 16:30 Warfarin Sodium (Coumadin) 6 mg DAILY16 PO Last administered on 07/03/16 16:23 ; Start 07/02/16 at 19:30; Stop 07/04/16 at 15:34; Status DC Albuterol Sulfate (Ventolin Neb Soln) 2.5 mg PRN Q4HRS PRN NEB SHORTNESS OF BREATH; Start 07/02/16 at 19:00 Non-Formulary Medication 1 cap BID PO ; Start 07/02/16 at 21:00; Status UNV Al Hydroxide/Mg Hydroxide (Mylanta Plus Xs) 30 ml PRN DAILY PRN PO HEARTBURN / GAS; Start 07/02/16 at 19:00 Multivitamins (Thera M Plus) 1 tab DAILY PO Last administered on 07/07/16 08: 01; Start 07/03/16 at 09:00 Potassium Chloride (Klor-Con) 20 meq DAILYWBKFT PO Last administered on 08:48; Start 07/03/16 at 08:00; Stop 07/03/16 at 10:55; Status DC Atorvastatin Calcium (Lipitor) 40 mg QHS PO Last administered on 07/06/16 20: 55; Start 07/02/16 at 21:00 Linagliptin (Tradjenta) 5 mg DAILY PO Last administered on 07/07/16 08:01; Start 07/03/16 at 09:00 Insulin Aspart (NovoLOG) 0-9 UNITS TIDWMEALS SQ Last administered on 07/06/16 12:17; Start 07/02/16 at 18:00 Dextrose (Dextrose 50%-Water Syringe) 12.5 gm PRN Q15MIN PRN IV SEE COMMENTS; Start 07/02/16 at 16:30 Warfarin Sodium (Coumadin Per Physician) 1 each PRN DAILY PRN MC SEE COMMENTS Last administered on 07/05/16 11:58; Start 07/02/16 at 19:00 Acetaminophen (Tylenol) 650 mg PRN Q6HRS PRN PO pain Last administered on 01:24; Start 07/02/16 at 21:30 Potassium Chloride (Klor-Con) 40 meq 1X ONCE PO Last administered on 21:52; Start 07/02/16 at 21:30; Stop 07/02/16 at 21:31; Status DC Potassium Chloride (Klor-Con) 40 meq DAILYWBKFT PO Last administered on 08:01; Start 07/04/16 at 08:00 Potassium Chloride (Klor-Con) 40 meq 1X ONCE PO Last administered on 11:39; Start 07/03/16 at 11:00; Stop 07/03/16 at 11:01; Status DC Loperamide HCl (Imodium) 2 mg PRN Q15MIN PRN PO DIARRHEA; Start 07/03/16 at 11: 45 Metronidazole (Flagyl) 500 mg TID PO Last administered on 07/07/16 08:01; Start 07/04/16 at 09:00 Diphenhydramine HCl (Benadryl) 25 mg PRN Q6HRS PRN PO ITCHING Last administered on 07/07/16 08:01; Start 07/07/16 at 06:30 Albuterol/ Ipratropium (Duoneb) 3 ml Q4HRS NEB Last administered on 07/07/16 07:25; Start 07/07/16 at 08:00 Active Scripts Active Doxycycline Hyclate 100 Mg Capsule 1 Cap PO BID Ventolin Hfa Inhaler (Albuterol Sulfate) 18 Gm Hfa.aer.ad 2 Puff INH Q4HRS PRN Levemir Flextouch (Insulin Detemir) 300 Units/3 Ml Insuln.pen 20 Units SQ QHS Reported Crestor (Rosuvastatin Calcium) 10 Mg Tablet 10 Mg PO HS Januvia (Sitagliptin Phosphate) 100 Mg Tablet 100 Mg PO DAILY Cartia Xt (Diltiazem Hcl) 240 Mg Cap.er.24h 240 Mg PO Furosemide 40 Mg Tablet 1 Tab PO DAILY Gave this am Take again tomorrow morning Rulox Suspension (Mag Hydrox/Al Hydrox/Simeth) 355 Ml Oral.susp 355 Ml PO DAILY PRN Not given on this admission take as needed for heartburn Milk Of Magnesia (Magnesium Hydroxide) 400 Mg/5 Ml Oral.susp 400 Mg PO DAILY PRN Not given on this admission take as needed for constipation Dulcolax (Bisacodyl) 5 Mg Tablet.dr 10 Mg RC PRN DAILY PRN Not given on this admission Take as needed for constipation Clonazepam 0.5 Mg Tablet 0.5 Mg PO HS PRN Not given on this admission Take as needed for anxiety Warfarin Sodium 2 Mg Tablet 6 Mg PO DAILY Gave yesterday at 5pm Take again this evening Potassium Cl 25 Meq Tab Eff (Pot Chloride/Pot Bicarb/Cit Ac) 25 Meq Tablet.eff 20 Meq PO DAILY Gave this am Take again tomorrow morning Multi Vitamin Daily (Multivitamin) 1 Each Tablet 1 Each PO DAILY Gave this am Take again tomorrow morning Vitals/I & O Vital Sign - Last 24 Hours 07/06/16 07/06/16 07/06/16 07/06/16 10:38 14:44 19:00 20:00 Temp 97.7 98.0 97.9 97.7 98.0 97.9 Pulse 84 64 75 Resp 20 17 18 B/P (MAP) 125/72 (89) 103/60 (74) 135/69 (91) Pulse Ox 94 92 94 O2 Delivery Room Air Room Air Room Air Room Air 07/06/16 07/07/16 07/07/16 07/07/16 22:29 07:00 07:27 07:58 Temp 98.1 97.5 98.1 97.5 Pulse 68 69 Resp 18 20 B/P (MAP) 123/70 (87) 119/72 (88) Pulse Ox 92 93 O2 Delivery Room Air Room Air Room Air Room Air 07/07/16 08:01 Pulse 69 B/P (MAP) 119/72 Intake and Output 07/06/16 07/06/16 07/07/16 15:00 23:00 07:00 Intake Total 360 ml 400 ml Output Total 400 ml 700 ml Balance -40 ml -300 ml MK CAMARILLO III DO July 07, 2016 08:53
--- NOTE | 2016-07-07 09:34 | RAD ---
Portable chest, 07/07/2016: History: COPD Comparison is made to a study from 07/02/2016. There is a moderate-sized hiatal hernia. The heart is at the upper limits of normal in size. There is tortuosity of the thoracic aorta. The pulmonary vascularity is normal. No acute infiltrate is seen. There is no evidence of pleural fluid. IMPRESSION: 1. Hiatal hernia. 2. Borderline cardiomegaly. 3. No acute abnormality is detected.
--- NOTE | 2016-07-07 09:40 | PDOC ---
G I PROGRESS NOTE Subjective Leg itches, otherwise no complaints. Eating OK. Diarrhea maybe better (5 stools charted yesterday). No N, V. Physical Exam Lungs clear. RRR Abdomen soft, not tender nor distended. Review of Relevant I have reviewed the following items faby (where applicable) has been applied. Labs Laboratory Tests Test 07/05/16 10:28 07/05/16 16:25 07/05/16 20:57 07/06/16 03:05 Glucose (Fingerstick) 151 mg/dL (70-99) 130 mg/dL (70-99) 138 mg/dL (70-99) White Blood Count 5.8 x10^3/uL (4.0-11.0) Red Blood Count 3.64 x10^6/uL (4.30-5.70) Hemoglobin 10.1 g/dL (13.0-17.5) Hematocrit 30.6 % (39.0-53.0) Mean Corpuscular Volume 84 fL (79-100) Mean Corpuscular Hemoglobin 28 pg (25-35) Mean Corpuscular Hemoglobin Concent 33 g/dL (31-37) Red Cell Distribution Width 16.3 % (11.5-14.5) Platelet Count 160 x10^3/uL (140-400) Neutrophils (%) (Auto) 64 % (31-73) Lymphocytes (%) (Auto) 19 % (24-48) Monocytes (%) (Auto) 13 % (0-9) Eosinophils (%) (Auto) 4 % (0-3) Basophils (%) (Auto) 1 % (0-3) Neutrophils # (Auto) 3.7 x10^3uL (1.8-7.7) Lymphocytes # (Auto) 1.1 x10^3/uL (1.0-4.8) Monocytes # (Auto) 0.7 x10^3/uL (0.0-1.1) Eosinophils # (Auto) 0.2 x10^3/uL (0.0-0.7) Basophils # (Auto) 0.0 x10^3/uL (0.0-0.2) Sodium Level 142 mmol/L (136-145) Potassium Level 3.8 mmol/L (3.5-5.1) Chloride Level 107 mmol/L (98-107) Carbon Dioxide Level 29 mmol/L (21-32) Anion Gap 6 (6-14) Blood Urea Nitrogen 17 mg/dL (8-26) Creatinine 1.3 mg/dL (0.7-1.3) Estimated GFR (Cockcroft-Gault) 52.0 Glucose Level 108 mg/dL (70-99) Calcium Level 8.2 mg/dL (8.5-10.1) Test 07/06/16 07:17 07/06/16 11:11 07/06/16 16:56 07/06/16 20:16 Glucose (Fingerstick) 114 mg/dL (70-99) 156 mg/dL (70-99) 114 mg/dL (70-99) 151 mg/dL (70-99) Test 07/07/16 04:30 07/07/16 07:09 07/07/16 07:35 White Blood Count 5.1 x10^3/uL (4.0-11.0) Red Blood Count 3.68 x10^6/uL (4.30-5.70) Hemoglobin 10.4 g/dL (13.0-17.5) Hematocrit 31.1 % (39.0-53.0) Mean Corpuscular Volume 84 fL (79-100) Mean Corpuscular Hemoglobin 28 pg (25-35) Mean Corpuscular Hemoglobin Concent 34 g/dL (31-37) Red Cell Distribution Width 16.4 % (11.5-14.5) Platelet Count 168 x10^3/uL (140-400) Neutrophils (%) (Auto) 65 % (31-73) Lymphocytes (%) (Auto) 18 % (24-48) Monocytes (%) (Auto) 13 % (0-9) Eosinophils (%) (Auto) 3 % (0-3) Basophils (%) (Auto) 1 % (0-3) Neutrophils # (Auto) 3.3 x10^3uL (1.8-7.7) Lymphocytes # (Auto) 0.9 x10^3/uL (1.0-4.8) Monocytes # (Auto) 0.6 x10^3/uL (0.0-1.1) Eosinophils # (Auto) 0.2 x10^3/uL (0.0-0.7) Basophils # (Auto) 0.0 x10^3/uL (0.0-0.2) Sodium Level 143 mmol/L (136-145) Potassium Level 3.7 mmol/L (3.5-5.1) Chloride Level 108 mmol/L (98-107) Carbon Dioxide Level 28 mmol/L (21-32) Anion Gap 7 (6-14) Blood Urea Nitrogen 16 mg/dL (8-26) Creatinine 1.4 mg/dL (0.7-1.3) Estimated GFR (Cockcroft-Gault) 47.7 Glucose Level 108 mg/dL (70-99) Calcium Level 8.1 mg/dL (8.5-10.1) O2 Saturation 91 % (92-99) Arterial Blood pH 7.41 (7.35-7.45) Arterial Blood pCO2 at Patient Temp 44 mmHg (35-46) Arterial Blood pO2 at Patient Temp 60 mmHg (65-108) Arterial Blood HCO3 27 mmol/L (21-28) Arterial Blood Base Excess 2 mmol/L (-3-3) FiO2 21 Glucose (Fingerstick) 100 mg/dL (70-99) Laboratory Tests Test 07/06/16 11:11 07/06/16 16:56 07/06/16 20:16 07/07/16 04:30 Glucose (Fingerstick) 156 mg/dL (70-99) 114 mg/dL (70-99) 151 mg/dL (70-99) White Blood Count 5.1 x10^3/uL (4.0-11.0) Red Blood Count 3.68 x10^6/uL (4.30-5.70) Hemoglobin 10.4 g/dL (13.0-17.5) Hematocrit 31.1 % (39.0-53.0) Mean Corpuscular Volume 84 fL (79-100) Mean Corpuscular Hemoglobin 28 pg (25-35) Mean Corpuscular Hemoglobin Concent 34 g/dL (31-37) Red Cell Distribution Width 16.4 % (11.5-14.5) Platelet Count 168 x10^3/uL (140-400) Neutrophils (%) (Auto) 65 % (31-73) Lymphocytes (%) (Auto) 18 % (24-48) Monocytes (%) (Auto) 13 % (0-9) Eosinophils (%) (Auto) 3 % (0-3) Basophils (%) (Auto) 1 % (0-3) Neutrophils # (Auto) 3.3 x10^3uL (1.8-7.7) Lymphocytes # (Auto) 0.9 x10^3/uL (1.0-4.8) Monocytes # (Auto) 0.6 x10^3/uL (0.0-1.1) Eosinophils # (Auto) 0.2 x10^3/uL (0.0-0.7) Basophils # (Auto) 0.0 x10^3/uL (0.0-0.2) Sodium Level 143 mmol/L (136-145) Potassium Level 3.7 mmol/L (3.5-5.1) Chloride Level 108 mmol/L (98-107) Carbon Dioxide Level 28 mmol/L (21-32) Anion Gap 7 (6-14) Blood Urea Nitrogen 16 mg/dL (8-26) Creatinine 1.4 mg/dL (0.7-1.3) Estimated GFR (Cockcroft-Gault) 47.7 Glucose Level 108 mg/dL (70-99) Calcium Level 8.1 mg/dL (8.5-10.1) Test 07/07/16 07:09 07/07/16 07:35 O2 Saturation 91 % (92-99) Arterial Blood pH 7.41 (7.35-7.45) Arterial Blood pCO2 at Patient Temp 44 mmHg (35-46) Arterial Blood pO2 at Patient Temp 60 mmHg (65-108) Arterial Blood HCO3 27 mmol/L (21-28) Arterial Blood Base Excess 2 mmol/L (-3-3) FiO2 21 Glucose (Fingerstick) 100 mg/dL (70-99) Microbiology 07/03/16 Stool Culture, Resulted Pending 07/03/16 Stool Culture Result 1 (UZMA), Resulted Pending 07/03/16 Campylobacter Antigen Assay, Resulted Pending 07/03/16 Campylobactor Result 1, Resulted Pending 07/03/16 Shiga Toxin Test - Final, Resulted Medications Current Medications Sodium Chloride 250 ml @ 250 mls/hr 1X ONCE IV Last administered on t 14:25; Start 07/02/16 at 14:00; Stop 07/02/16 at 14:59; Status DC Furosemide (Lasix) 40 mg 1X ONCE IVP Last administered on 07/02/16 15:23; Start 07/02/16 at 15:00; Stop 07/02/16 at 15:01; Status DC Ondansetron HCl (Zofran) 4 mg PRN Q8HRS PRN IV NAUSEA/VOMITING; Start 07/02/16 at 15:15; Stop 07/02/16 at 16:29; Status DC Sodium Chloride 1,000 ml @ 100 mls/hr Q10H IV Last administered on 07/03/16 01:38; Start 07/02/16 at 15:03; Stop 07/03/16 at 11:24; Status DC Ondansetron HCl (Zofran) 4 mg PRN Q6HRS PRN IV NAUSEA/VOMITING; Start 07/02/16 at 16:26; Stop 07/03/16 at 16:25; Status DC Bisacodyl (Dulcolax Tab) 10 mg PRN DAILY PRN PO CONSTIPATION; Start 07/02/16 at 16:30 Clonazepam (KlonoPIN) 0.5 mg PRN QHS PRN PO ANXIETY Last administered on 21:41; Start 07/02/16 at 16:30 Diltiazem HCl (Cardizem 24hr Cd) 240 mg DAILY PO Last administered on 08:01; Start 07/03/16 at 09:00 Furosemide (Lasix) 40 mg DAILY PO Last administered on 07/04/16 08:40; Start 07/03/16 at 09:00; Stop 07/05/16 at 11:46; Status DC Insulin Detemir (Levemir) 20 units QHS SQ Last administered on 07/06/16 21:11 ; Start 07/02/16 at 21:00 Magnesium Hydroxide (Milk Of Magnesia) 400 mg PRN DAILY PRN PO CONSTIPATION; Start 07/02/16 at 16:30 Warfarin Sodium (Coumadin) 6 mg DAILY16 PO Last administered on 07/03/16 16:23 ; Start 07/02/16 at 19:30; Stop 07/04/16 at 15:34; Status DC Albuterol Sulfate (Ventolin Neb Soln) 2.5 mg PRN Q4HRS PRN NEB SHORTNESS OF BREATH; Start 07/02/16 at 19:00 Non-Formulary Medication 1 cap BID PO ; Start 07/02/16 at 21:00; Status UNV Al Hydroxide/Mg Hydroxide (Mylanta Plus Xs) 30 ml PRN DAILY PRN PO HEARTBURN / GAS; Start 07/02/16 at 19:00 Multivitamins (Thera M Plus) 1 tab DAILY PO Last administered on 07/07/16 08: 01; Start 07/03/16 at 09:00 Potassium Chloride (Klor-Con) 20 meq DAILYWBKFT PO Last administered on 08:48; Start 07/03/16 at 08:00; Stop 07/03/16 at 10:55; Status DC Atorvastatin Calcium (Lipitor) 40 mg QHS PO Last administered on 07/06/16 20: 55; Start 07/02/16 at 21:00 Linagliptin (Tradjenta) 5 mg DAILY PO Last administered on 07/07/16 08:01; Start 07/03/16 at 09:00 Insulin Aspart (NovoLOG) 0-9 UNITS TIDWMEALS SQ Last administered on 07/06/16 12:17; Start 07/02/16 at 18:00 Dextrose (Dextrose 50%-Water Syringe) 12.5 gm PRN Q15MIN PRN IV SEE COMMENTS; Start 07/02/16 at 16:30 Warfarin Sodium (Coumadin Per Physician) 1 each PRN DAILY PRN MC SEE COMMENTS Last administered on 07/05/16 11:58; Start 07/02/16 at 19:00 Acetaminophen (Tylenol) 650 mg PRN Q6HRS PRN PO pain Last administered on 01:24; Start 07/02/16 at 21:30 Potassium Chloride (Klor-Con) 40 meq 1X ONCE PO Last administered on 21:52; Start 07/02/16 at 21:30; Stop 07/02/16 at 21:31; Status DC Potassium Chloride (Klor-Con) 40 meq DAILYWBKFT PO Last administered on 08:01; Start 07/04/16 at 08:00 Potassium Chloride (Klor-Con) 40 meq 1X ONCE PO Last administered on 11:39; Start 07/03/16 at 11:00; Stop 07/03/16 at 11:01; Status DC Loperamide HCl (Imodium) 2 mg PRN Q15MIN PRN PO DIARRHEA; Start 07/03/16 at 11: 45 Metronidazole (Flagyl) 500 mg TID PO Last administered on 07/07/16 08:01; Start 07/04/16 at 09:00 Diphenhydramine HCl (Benadryl) 25 mg PRN Q6HRS PRN PO ITCHING Last administered on 07/07/16 08:01; Start 07/07/16 at 06:30 Albuterol/ Ipratropium (Duoneb) 3 ml Q4HRS NEB Last administered on 07/07/16 07:25; Start 07/07/16 at 08:00 Active Scripts Active Doxycycline Hyclate 100 Mg Capsule 1 Cap PO BID Ventolin Hfa Inhaler (Albuterol Sulfate) 18 Gm Hfa.aer.ad 2 Puff INH Q4HRS PRN Levemir Flextouch (Insulin Detemir) 300 Units/3 Ml Insuln.pen 20 Units SQ QHS Reported Crestor (Rosuvastatin Calcium) 10 Mg Tablet 10 Mg PO HS Januvia (Sitagliptin Phosphate) 100 Mg Tablet 100 Mg PO DAILY Cartia Xt (Diltiazem Hcl) 240 Mg Cap.er.24h 240 Mg PO Furosemide 40 Mg Tablet 1 Tab PO DAILY Gave this am Take again tomorrow morning Rulox Suspension (Mag Hydrox/Al Hydrox/Simeth) 355 Ml Oral.susp 355 Ml PO DAILY PRN Not given on this admission take as needed for heartburn Milk Of Magnesia (Magnesium Hydroxide) 400 Mg/5 Ml Oral.susp 400 Mg PO DAILY PRN Not given on this admission take as needed for constipation Dulcolax (Bisacodyl) 5 Mg Tablet.dr 10 Mg RC PRN DAILY PRN Not given on this admission Take as needed for constipation Clonazepam 0.5 Mg Tablet 0.5 Mg PO HS PRN Not given on this admission Take as needed for anxiety Warfarin Sodium 2 Mg Tablet 6 Mg PO DAILY Gave yesterday at 5pm Take again this evening Potassium Cl 25 Meq Tab Eff (Pot Chloride/Pot Bicarb/Cit Ac) 25 Meq Tablet.eff 20 Meq PO DAILY Gave this am Take again tomorrow morning Multi Vitamin Daily (Multivitamin) 1 Each Tablet 1 Each PO DAILY Gave this am Take again tomorrow morning Vitals/I & O Vital Sign - Last 24 Hours 07/06/16 07/06/16 07/06/16 07/06/16 10:38 14:44 19:00 20:00 Temp 97.7 98.0 97.9 97.7 98.0 97.9 Pulse 84 64 75 Resp 20 17 18 B/P (MAP) 125/72 (89) 103/60 (74) 135/69 (91) Pulse Ox 94 92 94 O2 Delivery Room Air Room Air Room Air Room Air 07/06/16 07/07/16 07/07/16 07/07/16 22:29 07:00 07:27 07:58 Temp 98.1 97.5 98.1 97.5 Pulse 68 69 Resp 18 20 B/P (MAP) 123/70 (87) 119/72 (88) Pulse Ox 92 93 O2 Delivery Room Air Room Air Room Air Room Air 07/07/16 07/07/16 08:00 08:01 Pulse 69 B/P (MAP) 119/72 O2 Delivery Room Air Intake and Output 07/06/16 07/06/16 07/07/16 14:59 22:59 06:59 Intake Total 360 ml 400 ml Output Total 400 ml 700 ml Balance -40 ml -300 ml Problem List Problems Medical Problems: (1) Dehydration Status: Acute (2) Lower extremity edema Status: Acute Assessment C.diff, improving. Plan of Care: Continue current Tx, Mgmt Plan of Care Note Home for completion of therapy? OK with us. EMMETT BENÍTEZ MD July 07, 2016 09:40
[2016-07-07 10:52] VITALS: BP 122/63
--- NOTE | 2016-07-07 13:47 | PDOC ---
PULMONARY PROGRESS NOTES Vitals Vital Signs Date Time Temp Pulse Resp B/P (MAP) Pulse Ox O2 Delivery O2 Flow Rate FiO2 07/07/16 11:00 Room Air 07/07/16 10:52 97.7 72 20 122/63 (82) 93 97.7 General: Alert, No acute distress Lungs: Wheezing Cardiovascular: S1, S2 Abdomen: Soft, Non-tender Extremities: Other Labs Laboratory Tests Test 07/05/16 16:25 07/05/16 20:57 07/06/16 03:05 07/06/16 07:17 Glucose (Fingerstick) 130 mg/dL (70-99) 138 mg/dL (70-99) 114 mg/dL (70-99) White Blood Count 5.8 x10^3/uL (4.0-11.0) Red Blood Count 3.64 x10^6/uL (4.30-5.70) Hemoglobin 10.1 g/dL (13.0-17.5) Hematocrit 30.6 % (39.0-53.0) Mean Corpuscular Volume 84 fL (79-100) Mean Corpuscular Hemoglobin 28 pg (25-35) Mean Corpuscular Hemoglobin Concent 33 g/dL (31-37) Red Cell Distribution Width 16.3 % (11.5-14.5) Platelet Count 160 x10^3/uL (140-400) Neutrophils (%) (Auto) 64 % (31-73) Lymphocytes (%) (Auto) 19 % (24-48) Monocytes (%) (Auto) 13 % (0-9) Eosinophils (%) (Auto) 4 % (0-3) Basophils (%) (Auto) 1 % (0-3) Neutrophils # (Auto) 3.7 x10^3uL (1.8-7.7) Lymphocytes # (Auto) 1.1 x10^3/uL (1.0-4.8) Monocytes # (Auto) 0.7 x10^3/uL (0.0-1.1) Eosinophils # (Auto) 0.2 x10^3/uL (0.0-0.7) Basophils # (Auto) 0.0 x10^3/uL (0.0-0.2) Sodium Level 142 mmol/L (136-145) Potassium Level 3.8 mmol/L (3.5-5.1) Chloride Level 107 mmol/L (98-107) Carbon Dioxide Level 29 mmol/L (21-32) Anion Gap 6 (6-14) Blood Urea Nitrogen 17 mg/dL (8-26) Creatinine 1.3 mg/dL (0.7-1.3) Estimated GFR (Cockcroft-Gault) 52.0 Glucose Level 108 mg/dL (70-99) Calcium Level 8.2 mg/dL (8.5-10.1) Test 07/06/16 11:11 07/06/16 16:56 07/06/16 20:16 07/07/16 04:30 Glucose (Fingerstick) 156 mg/dL (70-99) 114 mg/dL (70-99) 151 mg/dL (70-99) White Blood Count 5.1 x10^3/uL (4.0-11.0) Red Blood Count 3.68 x10^6/uL (4.30-5.70) Hemoglobin 10.4 g/dL (13.0-17.5) Hematocrit 31.1 % (39.0-53.0) Mean Corpuscular Volume 84 fL (79-100) Mean Corpuscular Hemoglobin 28 pg (25-35) Mean Corpuscular Hemoglobin Concent 34 g/dL (31-37) Red Cell Distribution Width 16.4 % (11.5-14.5) Platelet Count 168 x10^3/uL (140-400) Neutrophils (%) (Auto) 65 % (31-73) Lymphocytes (%) (Auto) 18 % (24-48) Monocytes (%) (Auto) 13 % (0-9) Eosinophils (%) (Auto) 3 % (0-3) Basophils (%) (Auto) 1 % (0-3) Neutrophils # (Auto) 3.3 x10^3uL (1.8-7.7) Lymphocytes # (Auto) 0.9 x10^3/uL (1.0-4.8) Monocytes # (Auto) 0.6 x10^3/uL (0.0-1.1) Eosinophils # (Auto) 0.2 x10^3/uL (0.0-0.7) Basophils # (Auto) 0.0 x10^3/uL (0.0-0.2) Sodium Level 143 mmol/L (136-145) Potassium Level 3.7 mmol/L (3.5-5.1) Chloride Level 108 mmol/L (98-107) Carbon Dioxide Level 28 mmol/L (21-32) Anion Gap 7 (6-14) Blood Urea Nitrogen 16 mg/dL (8-26) Creatinine 1.4 mg/dL (0.7-1.3) Estimated GFR (Cockcroft-Gault) 47.7 Glucose Level 108 mg/dL (70-99) Calcium Level 8.1 mg/dL (8.5-10.1) Test 07/07/16 07:09 07/07/16 07:35 07/07/16 11:18 O2 Saturation 91 % (92-99) Arterial Blood pH 7.41 (7.35-7.45) Arterial Blood pCO2 at Patient Temp 44 mmHg (35-46) Arterial Blood pO2 at Patient Temp 60 mmHg (65-108) Arterial Blood HCO3 27 mmol/L (21-28) Arterial Blood Base Excess 2 mmol/L (-3-3) FiO2 21 Glucose (Fingerstick) 100 mg/dL (70-99) 122 mg/dL (70-99) Laboratory Tests Test 07/06/16 16:56 07/06/16 20:16 07/07/16 04:30 07/07/16 07:09 Glucose (Fingerstick) 114 mg/dL (70-99) 151 mg/dL (70-99) White Blood Count 5.1 x10^3/uL (4.0-11.0) Red Blood Count 3.68 x10^6/uL (4.30-5.70) Hemoglobin 10.4 g/dL (13.0-17.5) Hematocrit 31.1 % (39.0-53.0) Mean Corpuscular Volume 84 fL (79-100) Mean Corpuscular Hemoglobin 28 pg (25-35) Mean Corpuscular Hemoglobin Concent 34 g/dL (31-37) Red Cell Distribution Width 16.4 % (11.5-14.5) Platelet Count 168 x10^3/uL (140-400) Neutrophils (%) (Auto) 65 % (31-73) Lymphocytes (%) (Auto) 18 % (24-48) Monocytes (%) (Auto) 13 % (0-9) Eosinophils (%) (Auto) 3 % (0-3) Basophils (%) (Auto) 1 % (0-3) Neutrophils # (Auto) 3.3 x10^3uL (1.8-7.7) Lymphocytes # (Auto) 0.9 x10^3/uL (1.0-4.8) Monocytes # (Auto) 0.6 x10^3/uL (0.0-1.1) Eosinophils # (Auto) 0.2 x10^3/uL (0.0-0.7) Basophils # (Auto) 0.0 x10^3/uL (0.0-0.2) Sodium Level 143 mmol/L (136-145) Potassium Level 3.7 mmol/L (3.5-5.1) Chloride Level 108 mmol/L (98-107) Carbon Dioxide Level 28 mmol/L (21-32) Anion Gap 7 (6-14) Blood Urea Nitrogen 16 mg/dL (8-26) Creatinine 1.4 mg/dL (0.7-1.3) Estimated GFR (Cockcroft-Gault) 47.7 Glucose Level 108 mg/dL (70-99) Calcium Level 8.1 mg/dL (8.5-10.1) O2 Saturation 91 % (92-99) Arterial Blood pH 7.41 (7.35-7.45) Arterial Blood pCO2 at Patient Temp 44 mmHg (35-46) Arterial Blood pO2 at Patient Temp 60 mmHg (65-108) Arterial Blood HCO3 27 mmol/L (21-28) Arterial Blood Base Excess 2 mmol/L (-3-3) FiO2 21 Test 07/07/16 07:35 07/07/16 11:18 Glucose (Fingerstick) 100 mg/dL (70-99) 122 mg/dL (70-99) Medications Active Scripts Medications Dose Route/Sig Max Daily Dose Days Date Category Dose Instructions Crestor (Rosuvastatin Calcium) 10 Mg Tablet 10 Mg PO HS 12/17/15 Reported Januvia (Sitagliptin Phosphate) 100 Mg Tablet 100 Mg PO DAILY 12/17/15 Reported Cartia Xt (Diltiazem Hcl) 240 Mg Cap.er.24h 240 Mg PO 12/17/15 Reported Doxycycline Hyclate 100 Mg Capsule 1 Cap PO BID 12/15/15 Rx Ventolin Hfa Inhaler (Albuterol Sulfate) 18 Gm Hfa.aer.ad 2 Puff INH Q4HRS PRN 12/15/15 Rx Furosemide 40 Mg Tablet 1 Tab PO DAILY 12/08/14 Reported Gave this am Take again tomorrow morning Levemir Flextouch (Insulin Detemir) 300 Units/3 Ml Insuln.pen 20 Units SQ QHS 12/08/14 Rx Rulox Suspension (Mag Hydrox/Al Hydrox/Simeth) 355 Ml Oral.susp 355 Ml PO DAILY PRN 11/21/14 Reported Not given on this admission take as needed for heartburn Milk Of Magnesia (Magnesium Hydroxide) 400 Mg/5 Ml Oral.susp 400 Mg PO DAILY PRN 11/21/14 Reported Not given on this admission take as needed for constipation Dulcolax (Bisacodyl) 5 Mg Tablet.dr 10 Mg RC PRN DAILY PRN 11/21/14 Reported Not given on this admission Take as needed for constipation Clonazepam 0.5 Mg Tablet 0.5 Mg PO HS PRN 01/27/13 Reported Not given on this admission Take as needed for anxiety Warfarin Sodium 2 Mg Tablet 6 Mg PO DAILY 01/27/13 Reported Gave yesterday at 5pm Take again this evening Potassium Cl 25 Meq Tab Eff (Pot Chloride/Pot Bicarb/Cit Ac) 25 Meq Tablet.eff 20 Meq PO DAILY 01/27/13 Reported Gave this am Take again tomorrow morning Multi Vitamin Daily (Multivitamin) 1 Each Tablet 1 Each PO DAILY 01/27/13 Reported Gave this am Take again tomorrow morning Impression . mild aecopd added pred thanks DARY WELLS MD July 07, 2016 13:47
[2016-07-07 15:00] VITALS: BP 104/62
[2016-07-07] MEDS: predniSONE 20 MG TABLET PO SCH (17:10)
[2016-07-07 19:00] VITALS: BP 128/69
[2016-07-07] MEDS: ATORVASTATIN CALCIUM 40 MG TABLET. PO SCH (21:07)
[2016-07-07] MEDS: clonazePAM 0.5 MG TABLET PO PRN (21:07)
[2016-07-07] MEDS: INSULIN DETEMIR 300 UNITS/3 ML INSULN.PEN. SQ SCH (21:12)
[2016-07-07 23:00] VITALS: BP 139/77
[2016-07-08] MEDS: IPRATRPIUM/ALBUTEROL 0.5/2.5MG 3 ML NEBU. NEB SCH ×3 (03:10→11:10)
[2016-07-08 04:50] LABS: BASO % 0 % (0-3); EOS % 0 % (0-3); HEMATOCRIT 31.6 % (39.0-53.0); HEMOGLOBIN 10.8 g/dL (13.0-17.5); LYMPH # 0.7 x10^3/uL (1.0-4.8); LYMPH % 11 % (24-48); MEAN CORPUSCULAR HEMOGLOBIN 28 pg (25-35); MEAN CORPUSCULAR HGB CONC 34 g/dL (31-37); MEAN CORPUSCULAR VOLUME 82 fL (79-100); MONO % 3 % (0-9); NEUT % 85 % (31-73); PLATELET COUNT 193 x10^3/uL (140-400); RED BLOOD COUNT 3.86 x10^6/uL (4.30-5.70); RED CELL DISTRIBUTION WIDTH 16.3 % (11.5-14.5); WHITE BLOOD COUNT 5.8 x10^3/uL (4.0-11.0)
[2016-07-08 05:03] LABS: CALCIUM 8.5 mg/dL (8.5-10.1); CREATININE 1.2 mg/dL (0.7-1.3); POTASSIUM 4.4 mmol/L (3.5-5.1)
--- NOTE | 2016-07-08 05:33 | CONS ---
DATE OF CONSULTATION: 07/07/2016 ATTENDING PHYSICIAN: Dr. Posey. REASON FOR CONSULTATION: The patient seen in pulmonary consultation at the request of Dr. Murguia for wheezing, COPD. HISTORY OF PRESENT ILLNESS: The patient is an 89-year-old who presented with a 4-day history of loose stools, no bloody stools. No fever, chills or night sweats. Today, he was found to be wheezing. I was asked to see him in consultation. The patient states he quit tobacco many years ago. He normally does not wear oxygen. He is not coughing up any mucus. He is not more short of breath than usual. He resides at a care home and he gets around in a wheelchair. PAST MEDICAL HISTORY: AFib, hypertension, COPD, arthritis, type 2 diabetes, gastroesophageal reflux, dyslipidemia, obstructive sleep apnea, no longer utilizing CPAP. PAST SURGICAL HISTORY: No recent surgeries. MEDICATIONS: List was reviewed. Please see the MRAD. ALLERGIES: No known drug allergies listed. FAMILY HISTORY: Noncontributory in this age group. REVIEW OF SYSTEMS: As indicated above, otherwise, a 10-point system was reviewed and negative. PHYSICAL EXAMINATION: GENERAL: The patient was in no respiratory distress. VITAL SIGNS: Stable. O2 saturation was greater than 92%. HEENT: Eyes, the sclerae were nonicteric. NECK: Jugular venous distention was not elevated. No lymphadenopathy. CHEST: Full expansion. LUNGS: Expiratory wheeze with no adequate airway flow. CARDIOVASCULAR: Regular rate and rhythm with S1, S2, no S3. ABDOMEN: Soft, obese. EXTREMITIES: No clubbing, cyanosis. Evidence of skin changes compatible with venous insufficiency. NEUROLOGIC: The patient was sleepy, but arousable, following commands. A detailed neuro exam was not performed. LABORATORY DATA: Reviewed. White count was normal. Arterial blood gas; pH of 7.41, pCO2 of 44, pO2 of 60, C. diff was positive on the 20th. INR is 3.2. A chest x-ray was reviewed, no acute cardiopulmonary process. IMPRESSION: 1. ____ bronchospasm secondary to chronic obstructive pulmonary disease and suspect bronchomalacia. 2. Obstructive sleep apnea. The patient intolerant to CPAP. 3. Clostridium difficile. 4. History of chronic atrial fibrillation, on anticoagulation. 5. Hyperlipidemia. 6. Gastroesophageal reflux. 7. Chronic renal insufficiency. PLAN: 1. Recommend continue p.r.n. nebulized treatments. 2. Add short course of prednisone. 3. We will make adjustments on his medical regimen depending on patient's clinical response. I do appreciate the privilege in sharing in the patient's care. DARY WELLS MD DR: ELHAM/mariana JOB#: [id number] / [id number]
[2016-07-08 07:00] VITALS: BP 138/82
[2016-07-08] MEDS: INSULIN ASPART 300 UNITS/3 ML INSULN.PEN SQ SCH ×2 (07:56→12:21)
[2016-07-08] MEDS: POTASSIUM CHLORIDE 20 MEQ TABLET.ER. PO SCH (08:07)
[2016-07-08] MEDS: metroNIDAZOLE 500 MG TABLET PO SCH ×2 (08:09→13:28)
[2016-07-08] MEDS: predniSONE 20 MG TABLET PO SCH (08:10)
[2016-07-08] MEDS: MULTIVITAMIN with MINERAL TABLET. PO SCH (08:11)
[2016-07-08] MEDS: LINAGLIPTIN 5 MG TABLET PO SCH (08:11)
[2016-07-08 11:00] VITALS: BP 135/71
--- NOTE | 2016-07-08 11:49 | PDOC ---
PULMONARY PROGRESS NOTES Subjective NO RESP DISTRESS Vitals Vital Signs Date Time Temp Pulse Resp B/P (MAP) Pulse Ox O2 Delivery O2 Flow Rate FiO2 07/08/16 11:12 Room Air 07/08/16 11:00 97.7 71 18 135/71 (92) 95 97.7 ROS: No Nausea, No Chest Pain, No Abdominal Pain General: Alert, No acute distress Lungs: Clear Cardiovascular: S1, S2 Abdomen: Soft, Non-tender Neuro Exam: Alert Extremities: Other (SOME EDEMA) Skin: Warm Labs Laboratory Tests Test 07/06/16 16:56 07/06/16 20:16 07/07/16 04:30 07/07/16 07:09 Glucose (Fingerstick) 114 mg/dL (70-99) 151 mg/dL (70-99) White Blood Count 5.1 x10^3/uL (4.0-11.0) Red Blood Count 3.68 x10^6/uL (4.30-5.70) Hemoglobin 10.4 g/dL (13.0-17.5) Hematocrit 31.1 % (39.0-53.0) Mean Corpuscular Volume 84 fL (79-100) Mean Corpuscular Hemoglobin 28 pg (25-35) Mean Corpuscular Hemoglobin Concent 34 g/dL (31-37) Red Cell Distribution Width 16.4 % (11.5-14.5) Platelet Count 168 x10^3/uL (140-400) Neutrophils (%) (Auto) 65 % (31-73) Lymphocytes (%) (Auto) 18 % (24-48) Monocytes (%) (Auto) 13 % (0-9) Eosinophils (%) (Auto) 3 % (0-3) Basophils (%) (Auto) 1 % (0-3) Neutrophils # (Auto) 3.3 x10^3uL (1.8-7.7) Lymphocytes # (Auto) 0.9 x10^3/uL (1.0-4.8) Monocytes # (Auto) 0.6 x10^3/uL (0.0-1.1) Eosinophils # (Auto) 0.2 x10^3/uL (0.0-0.7) Basophils # (Auto) 0.0 x10^3/uL (0.0-0.2) Sodium Level 143 mmol/L (136-145) Potassium Level 3.7 mmol/L (3.5-5.1) Chloride Level 108 mmol/L (98-107) Carbon Dioxide Level 28 mmol/L (21-32) Anion Gap 7 (6-14) Blood Urea Nitrogen 16 mg/dL (8-26) Creatinine 1.4 mg/dL (0.7-1.3) Estimated GFR (Cockcroft-Gault) 47.7 Glucose Level 108 mg/dL (70-99) Calcium Level 8.1 mg/dL (8.5-10.1) O2 Saturation 91 % (92-99) Arterial Blood pH 7.41 (7.35-7.45) Arterial Blood pCO2 at Patient Temp 44 mmHg (35-46) Arterial Blood pO2 at Patient Temp 60 mmHg (65-108) Arterial Blood HCO3 27 mmol/L (21-28) Arterial Blood Base Excess 2 mmol/L (-3-3) FiO2 21 Test 07/07/16 07:35 07/07/16 11:18 07/07/16 16:31 07/07/16 20:54 Glucose (Fingerstick) 100 mg/dL (70-99) 122 mg/dL (70-99) 113 mg/dL (70-99) 163 mg/dL (70-99) Test 07/08/16 03:45 07/08/16 10:43 White Blood Count 5.8 x10^3/uL (4.0-11.0) Red Blood Count 3.86 x10^6/uL (4.30-5.70) Hemoglobin 10.8 g/dL (13.0-17.5) Hematocrit 31.6 % (39.0-53.0) Mean Corpuscular Volume 82 fL (79-100) Mean Corpuscular Hemoglobin 28 pg (25-35) Mean Corpuscular Hemoglobin Concent 34 g/dL (31-37) Red Cell Distribution Width 16.3 % (11.5-14.5) Platelet Count 193 x10^3/uL (140-400) Neutrophils (%) (Auto) 85 % (31-73) Lymphocytes (%) (Auto) 11 % (24-48) Monocytes (%) (Auto) 3 % (0-9) Eosinophils (%) (Auto) 0 % (0-3) Basophils (%) (Auto) 0 % (0-3) Neutrophils # (Auto) 5.0 x10^3uL (1.8-7.7) Lymphocytes # (Auto) 0.7 x10^3/uL (1.0-4.8) Monocytes # (Auto) 0.2 x10^3/uL (0.0-1.1) Eosinophils # (Auto) 0.0 x10^3/uL (0.0-0.7) Basophils # (Auto) 0.0 x10^3/uL (0.0-0.2) Sodium Level 143 mmol/L (136-145) Potassium Level 4.4 mmol/L (3.5-5.1) Chloride Level 108 mmol/L (98-107) Carbon Dioxide Level 26 mmol/L (21-32) Anion Gap 9 (6-14) Blood Urea Nitrogen 17 mg/dL (8-26) Creatinine 1.2 mg/dL (0.7-1.3) Estimated GFR (Cockcroft-Gault) 57.0 Glucose Level 188 mg/dL (70-99) Calcium Level 8.5 mg/dL (8.5-10.1) Glucose (Fingerstick) 190 mg/dL (70-99) Laboratory Tests Test 07/07/16 16:31 07/07/16 20:54 07/08/16 03:45 07/08/16 10:43 Glucose (Fingerstick) 113 mg/dL (70-99) 163 mg/dL (70-99) 190 mg/dL (70-99) White Blood Count 5.8 x10^3/uL (4.0-11.0) Red Blood Count 3.86 x10^6/uL (4.30-5.70) Hemoglobin 10.8 g/dL (13.0-17.5) Hematocrit 31.6 % (39.0-53.0) Mean Corpuscular Volume 82 fL (79-100) Mean Corpuscular Hemoglobin 28 pg (25-35) Mean Corpuscular Hemoglobin Concent 34 g/dL (31-37) Red Cell Distribution Width 16.3 % (11.5-14.5) Platelet Count 193 x10^3/uL (140-400) Neutrophils (%) (Auto) 85 % (31-73) Lymphocytes (%) (Auto) 11 % (24-48) Monocytes (%) (Auto) 3 % (0-9) Eosinophils (%) (Auto) 0 % (0-3) Basophils (%) (Auto) 0 % (0-3) Neutrophils # (Auto) 5.0 x10^3uL (1.8-7.7) Lymphocytes # (Auto) 0.7 x10^3/uL (1.0-4.8) Monocytes # (Auto) 0.2 x10^3/uL (0.0-1.1) Eosinophils # (Auto) 0.0 x10^3/uL (0.0-0.7) Basophils # (Auto) 0.0 x10^3/uL (0.0-0.2) Sodium Level 143 mmol/L (136-145) Potassium Level 4.4 mmol/L (3.5-5.1) Chloride Level 108 mmol/L (98-107) Carbon Dioxide Level 26 mmol/L (21-32) Anion Gap 9 (6-14) Blood Urea Nitrogen 17 mg/dL (8-26) Creatinine 1.2 mg/dL (0.7-1.3) Estimated GFR (Cockcroft-Gault) 57.0 Glucose Level 188 mg/dL (70-99) Calcium Level 8.5 mg/dL (8.5-10.1) Medications Active Scripts Medications Dose Route/Sig Max Daily Dose Days Date Category Dose Instructions Crestor (Rosuvastatin Calcium) 10 Mg Tablet 10 Mg PO HS 12/17/15 Reported Januvia (Sitagliptin Phosphate) 100 Mg Tablet 100 Mg PO DAILY 12/17/15 Reported Cartia Xt (Diltiazem Hcl) 240 Mg Cap.er.24h 240 Mg PO 12/17/15 Reported Doxycycline Hyclate 100 Mg Capsule 1 Cap PO BID 12/15/15 Rx Ventolin Hfa Inhaler (Albuterol Sulfate) 18 Gm Hfa.aer.ad 2 Puff INH Q4HRS PRN 12/15/15 Rx Furosemide 40 Mg Tablet 1 Tab PO DAILY 12/08/14 Reported Gave this am Take again tomorrow morning Levemir Flextouch (Insulin Detemir) 300 Units/3 Ml Insuln.pen 20 Units SQ QHS 12/08/14 Rx Rulox Suspension (Mag Hydrox/Al Hydrox/Simeth) 355 Ml Oral.susp 355 Ml PO DAILY PRN 11/21/14 Reported Not given on this admission take as needed for heartburn Milk Of Magnesia (Magnesium Hydroxide) 400 Mg/5 Ml Oral.susp 400 Mg PO DAILY PRN 11/21/14 Reported Not given on this admission take as needed for constipation Dulcolax (Bisacodyl) 5 Mg Tablet.dr 10 Mg RC PRN DAILY PRN 11/21/14 Reported Not given on this admission Take as needed for constipation Clonazepam 0.5 Mg Tablet 0.5 Mg PO HS PRN 01/27/13 Reported Not given on this admission Take as needed for anxiety Warfarin Sodium 2 Mg Tablet 6 Mg PO DAILY 01/27/13 Reported Gave yesterday at 5pm Take again this evening Potassium Cl 25 Meq Tab Eff (Pot Chloride/Pot Bicarb/Cit Ac) 25 Meq Tablet.eff 20 Meq PO DAILY 01/27/13 Reported Gave this am Take again tomorrow morning Multi Vitamin Daily (Multivitamin) 1 Each Tablet 1 Each PO DAILY 01/27/13 Reported Gave this am Take again tomorrow morning Impression . 1. Acute bronchospasm secondary to chronic obstructive pulmonary disease and suspect bronchomalacia. 2. Obstructive sleep apnea. The patient intolerant to CPAP. 3. Clostridium difficile. 4. History of chronic atrial fibrillation, on anticoagulation. 5. Hyperlipidemia. 6. Gastroesophageal reflux. 7. Chronic renal insufficiency. Plan . BETTER TODAY OK TO D/C ON TAPER PRED THANKS 1. Recommend continue p.r.n. nebulized treatments. 2. Add short course of prednisone. 3. We will make adjustments on his medical regimen depending on patient's clinical response. DARY WELLS MD July 08, 2016 11:49
--- NOTE | 2016-07-08 12:15 | PDOC ---
Subjective: Subjective: Doing okay. Not sure about diarrhea, thinks had a small stool earlier. Objective: Objective: Per RN - 1 stool today. Vital Signs: Vital Signs Date Time Temp Pulse Resp B/P (MAP) Pulse Ox O2 Delivery O2 Flow Rate FiO2 07/08/16 11:12 Room Air 07/08/16 11:00 97.7 71 18 135/71 (92) 95 97.7 Labs: Laboratory Tests Test 07/07/16 16:31 07/07/16 20:54 07/08/16 03:45 07/08/16 10:43 Glucose (Fingerstick) 113 mg/dL 163 mg/dL 190 mg/dL White Blood Count 5.8 x10^3/uL Red Blood Count 3.86 x10^6/uL Hemoglobin 10.8 g/dL Hematocrit 31.6 % Mean Corpuscular Volume 82 fL Mean Corpuscular Hemoglobin 28 pg Mean Corpuscular Hemoglobin Concent 34 g/dL Red Cell Distribution Width 16.3 % Platelet Count 193 x10^3/uL Neutrophils (%) (Auto) 85 % Lymphocytes (%) (Auto) 11 % Monocytes (%) (Auto) 3 % Eosinophils (%) (Auto) 0 % Basophils (%) (Auto) 0 % Neutrophils # (Auto) 5.0 x10^3uL Lymphocytes # (Auto) 0.7 x10^3/uL Monocytes # (Auto) 0.2 x10^3/uL Eosinophils # (Auto) 0.0 x10^3/uL Basophils # (Auto) 0.0 x10^3/uL Sodium Level 143 mmol/L Potassium Level 4.4 mmol/L Chloride Level 108 mmol/L Carbon Dioxide Level 26 mmol/L Anion Gap 9 Blood Urea Nitrogen 17 mg/dL Creatinine 1.2 mg/dL Estimated GFR (Cockcroft-Gault) 57.0 Glucose Level 188 mg/dL Calcium Level 8.5 mg/dL PE: GEN: NAD, up to chair LUNGS: decreased HEART: RRR ABD: BS+, soft, non-tender NEURO/PSYCH: A & O 3 A/P: C Diff -on Flagyl 500mg TID, started 07/04 -- Diarrhea improved. Continue atbx, DC per primary. DEBBIE VÁZQUEZ July 08, 2016 12:15
[2016-07-08] MEDS ORDERED: METR500T PO (13:28)
--- NOTE | 2016-07-08 13:31 | PDOC3 ---
Discharge Summary Visit Information Date of Admission: July 02, 2016 Date of Discharge: July 08, 2016 Admitting Diagnosis Comment: 1. First episode C diff diarrhea 2. Chronic lymphedema, 3. Acute bilateral leg pain, chronic lymhedema 4. Chronic wounds legs - none seem infected 5. Long toe nails 6, Hypokalemia from GI loss, replaced 7. CHF, atrial fib on AC - all chronic stable Final Diagnosis Problems Medical Problems: (1) Dehydration Status: Acute (2) Lower extremity edema Status: Acute Brief Hospital Course Allergies Allergies Coded Allergies Type Severity Reaction Last Updated Verified No Known Drug Allergies 12/05/14 No Vital Signs Vital Signs Date Time Temp Pulse Resp B/P (MAP) Pulse Ox O2 Delivery O2 Flow Rate FiO2 07/08/16 11:12 Room Air 07/08/16 11:00 97.7 71 18 135/71 (92) 95 97.7 Lab Results Laboratory Tests Test 07/06/16 16:56 07/06/16 20:16 07/07/16 04:30 07/07/16 07:09 Glucose (Fingerstick) 114 mg/dL (70-99) 151 mg/dL (70-99) White Blood Count 5.1 x10^3/uL (4.0-11.0) Red Blood Count 3.68 x10^6/uL (4.30-5.70) Hemoglobin 10.4 g/dL (13.0-17.5) Hematocrit 31.1 % (39.0-53.0) Mean Corpuscular Volume 84 fL (79-100) Mean Corpuscular Hemoglobin 28 pg (25-35) Mean Corpuscular Hemoglobin Concent 34 g/dL (31-37) Red Cell Distribution Width 16.4 % (11.5-14.5) Platelet Count 168 x10^3/uL (140-400) Neutrophils (%) (Auto) 65 % (31-73) Lymphocytes (%) (Auto) 18 % (24-48) Monocytes (%) (Auto) 13 % (0-9) Eosinophils (%) (Auto) 3 % (0-3) Basophils (%) (Auto) 1 % (0-3) Neutrophils # (Auto) 3.3 x10^3uL (1.8-7.7) Lymphocytes # (Auto) 0.9 x10^3/uL (1.0-4.8) Monocytes # (Auto) 0.6 x10^3/uL (0.0-1.1) Eosinophils # (Auto) 0.2 x10^3/uL (0.0-0.7) Basophils # (Auto) 0.0 x10^3/uL (0.0-0.2) Sodium Level 143 mmol/L (136-145) Potassium Level 3.7 mmol/L (3.5-5.1) Chloride Level 108 mmol/L (98-107) Carbon Dioxide Level 28 mmol/L (21-32) Anion Gap 7 (6-14) Blood Urea Nitrogen 16 mg/dL (8-26) Creatinine 1.4 mg/dL (0.7-1.3) Estimated GFR (Cockcroft-Gault) 47.7 Glucose Level 108 mg/dL (70-99) Calcium Level 8.1 mg/dL (8.5-10.1) O2 Saturation 91 % (92-99) Arterial Blood pH 7.41 (7.35-7.45) Arterial Blood pCO2 at Patient Temp 44 mmHg (35-46) Arterial Blood pO2 at Patient Temp 60 mmHg (65-108) Arterial Blood HCO3 27 mmol/L (21-28) Arterial Blood Base Excess 2 mmol/L (-3-3) FiO2 21 Test 07/07/16 07:35 07/07/16 11:18 07/07/16 16:31 07/07/16 20:54 Glucose (Fingerstick) 100 mg/dL (70-99) 122 mg/dL (70-99) 113 mg/dL (70-99) 163 mg/dL (70-99) Test 07/08/16 03:45 07/08/16 10:43 White Blood Count 5.8 x10^3/uL (4.0-11.0) Red Blood Count 3.86 x10^6/uL (4.30-5.70) Hemoglobin 10.8 g/dL (13.0-17.5) Hematocrit 31.6 % (39.0-53.0) Mean Corpuscular Volume 82 fL (79-100) Mean Corpuscular Hemoglobin 28 pg (25-35) Mean Corpuscular Hemoglobin Concent 34 g/dL (31-37) Red Cell Distribution Width 16.3 % (11.5-14.5) Platelet Count 193 x10^3/uL (140-400) Neutrophils (%) (Auto) 85 % (31-73) Lymphocytes (%) (Auto) 11 % (24-48) Monocytes (%) (Auto) 3 % (0-9) Eosinophils (%) (Auto) 0 % (0-3) Basophils (%) (Auto) 0 % (0-3) Neutrophils # (Auto) 5.0 x10^3uL (1.8-7.7) Lymphocytes # (Auto) 0.7 x10^3/uL (1.0-4.8) Monocytes # (Auto) 0.2 x10^3/uL (0.0-1.1) Eosinophils # (Auto) 0.0 x10^3/uL (0.0-0.7) Basophils # (Auto) 0.0 x10^3/uL (0.0-0.2) Sodium Level 143 mmol/L (136-145) Potassium Level 4.4 mmol/L (3.5-5.1) Chloride Level 108 mmol/L (98-107) Carbon Dioxide Level 26 mmol/L (21-32) Anion Gap 9 (6-14) Blood Urea Nitrogen 17 mg/dL (8-26) Creatinine 1.2 mg/dL (0.7-1.3) Estimated GFR (Cockcroft-Gault) 57.0 Glucose Level 188 mg/dL (70-99) Calcium Level 8.5 mg/dL (8.5-10.1) Glucose (Fingerstick) 190 mg/dL (70-99) Laboratory Tests Test 07/07/16 16:31 07/07/16 20:54 07/08/16 03:45 07/08/16 10:43 Glucose (Fingerstick) 113 mg/dL (70-99) 163 mg/dL (70-99) 190 mg/dL (70-99) White Blood Count 5.8 x10^3/uL (4.0-11.0) Red Blood Count 3.86 x10^6/uL (4.30-5.70) Hemoglobin 10.8 g/dL (13.0-17.5) Hematocrit 31.6 % (39.0-53.0) Mean Corpuscular Volume 82 fL (79-100) Mean Corpuscular Hemoglobin 28 pg (25-35) Mean Corpuscular Hemoglobin Concent 34 g/dL (31-37) Red Cell Distribution Width 16.3 % (11.5-14.5) Platelet Count 193 x10^3/uL (140-400) Neutrophils (%) (Auto) 85 % (31-73) Lymphocytes (%) (Auto) 11 % (24-48) Monocytes (%) (Auto) 3 % (0-9) Eosinophils (%) (Auto) 0 % (0-3) Basophils (%) (Auto) 0 % (0-3) Neutrophils # (Auto) 5.0 x10^3uL (1.8-7.7) Lymphocytes # (Auto) 0.7 x10^3/uL (1.0-4.8) Monocytes # (Auto) 0.2 x10^3/uL (0.0-1.1) Eosinophils # (Auto) 0.0 x10^3/uL (0.0-0.7) Basophils # (Auto) 0.0 x10^3/uL (0.0-0.2) Sodium Level 143 mmol/L (136-145) Potassium Level 4.4 mmol/L (3.5-5.1) Chloride Level 108 mmol/L (98-107) Carbon Dioxide Level 26 mmol/L (21-32) Anion Gap 9 (6-14) Blood Urea Nitrogen 17 mg/dL (8-26) Creatinine 1.2 mg/dL (0.7-1.3) Estimated GFR (Cockcroft-Gault) 57.0 Glucose Level 188 mg/dL (70-99) Calcium Level 8.5 mg/dL (8.5-10.1) Brief Hospital Course Mr. Martinez is a 89 old male from assisted living, admitted for diarrhea and weakness, turned out to be c diff, first episode, NO colitis that' s marked. Started on flagyl, Diarrhea coming down, Course had some wheezing, hx COPD< Pulmo consulted, PO pred and nebs. RX provided to complete total 14 days flagyl and tapering steroids rxd Patient seen and examined COnsults: GI and pulmo Proc; none dc31 mins Discharge Information Condition at Discharge: Improved, Stable Disposition/Orders: Other (snf) Scheduled Doxycycline Hyclate (Doxycycline Hyclate), 1 CAP PO BID Furosemide (Furosemide), 1 TAB PO DAILY, (Reported) Insulin Detemir (Levemir Flextouch), 20 UNITS SQ QHS Multivitamin (Multi Vitamin Daily), 1 EACH PO DAILY, (Reported) Pot Chloride/Pot Bicarb/Cit Ac (Potassium Cl 25 Meq Tab Eff), 20 MEQ PO DAILY, ( Reported) Rosuvastatin Calcium (Crestor), 10 MG PO HS, (Reported) Sitagliptin Phosphate (Januvia), 100 MG PO DAILY, (Reported) Warfarin Sodium (Warfarin Sodium), 6 MG PO DAILY, (Reported) Scheduled PRN Albuterol Sulfate (Ventolin Hfa Inhaler), 2 PUFF INH Q4HRS PRN for WHEEZING Bisacodyl (Dulcolax), 10 MG RC PRN DAILY PRN for CONSTIPATION, (Reported) Clonazepam (Clonazepam), 0.5 MG PO HS PRN for ANXIETY, (Reported) Mag Hydrox/Al Hydrox/Simeth (Rulox Suspension), 355 ML PO DAILY PRN for HEARTBURN / GAS, (Reported) Magnesium Hydroxide (Milk Of Magnesia), 400 MG PO DAILY PRN for CONSTIPATION, ( Reported) Miscellaneous Medications Diltiazem Hcl (Cartia Xt), 240 MG PO, (Reported) LAUREN LLANES MD July 08, 2016 13:31
[2016-07-08 13:45] LABS: INR 1.5 (0.8-1.1); PROTHROMBIN TIME PATIENT 16.8 SEC (11.7-14.0)
== END 2016-07-08 14:48 | DRG 371 ==
LOC: ER 14:59 → 5 SOUTH 18:32
PROVIDERS: ADMIT Internal Medicine; ATTEND Internal Medicine
DX: A04.7 Enterocolitis due to Clostridium difficile (principal); N17.0 Acute kidney failure with tubular necrosis; J44.1 Chronic obstructive pulmonary disease with (acute) exacerbation; I13.0 Hypertensive heart and chronic kidney disease with heart failure and stage 1 through stage 4 chronic kidney disease, or unspecified chronic kidney disease; I50.42 Chronic combined systolic (congestive) and diastolic (congestive) heart failure; D64.9 Anemia, unspecified; E11.42 Type 2 diabetes mellitus with diabetic polyneuropathy; E78.5 Hyperlipidemia, unspecified; E86.0 Dehydration; E87.6 Hypokalemia; G47.33 Obstructive sleep apnea (adult) (pediatric); I48.91 Unspecified atrial fibrillation; I89.0 Lymphedema, not elsewhere classified; J98.01 Acute bronchospasm; K21.9 Gastro-esophageal reflux disease without esophagitis; E78.00 Pure hypercholesterolemia, unspecified; M19.90 Unspecified osteoarthritis, unspecified site; M81.0 Age-related osteoporosis without current pathological fracture; N18.9 Chronic kidney disease, unspecified; Z79.01 Long term (current) use of anticoagulants; Z80.9 Family history of malignant neoplasm, unspecified
CPT/HCPCS: 36415; 36600; 71010; 80048; 82805; 82947; 83880; 84484; 85027; 85610; 87045; 87324; 87641; 93005; 94250; 94640; 94760; 96361; 96374; J1815; J1940; J7030; J7050; J7512; J7620; Q0163; 97110; 97530; 97535; 99285-25